=== PATIENT | male | born 1975 | race Caucasian/White ===

== ENCOUNTER 2017-11-30 12:32 | Emergency (ER) | payer MEDICARE, OTHER ==
[~2017-11-30 12:32] MED LIST: ACET325T9 PO; AMIT50TA PO; AMOX1TAB61 PO; BACL20TA PO; CARB15DR2 OP; CEPH-264 PEG; DOCU-109 PO; FENT1PAT91 TD; FEXO60TA25 PO; HYDR-2758 PO; LACT-73 PO; LACT10SO PO; LANS30CA66 PO; LEVE100S8 PO; LINE600T PO; LORA0.5P MC; LORA0.5T PO; LORA2ORA2 PO; MAGN400C PO; MAGN400O7 PO; MOXI3DRO2 OU; MULT-18 PO; OXYB5TAB7 PO; OXYC5CAP PO; PANT40GR PO; POLY17PO5 PO; PROP20TA PO; SERT25TA PO; TIZA6CAP PO; ULTIMATE FLORA; ZINC50TA29 PO; [UNRECOGNIZED DRUG - CODE] IV; [UNRECOGNIZED DRUG - CODE] MC; [UNRECOGNIZED DRUG - CODE] PO; [UNRECOGNIZED DRUG - CODE] PO; [UNRECOGNIZED DRUG - CODE] PO
--- NOTE | 2017-11-30 13:24 | PHYS DOC ---
Past History Past Medical History: Gallstones, Kidney Stones, UTI, Other Past Surgical History: Other Smoking: Non-smoker Alcohol Use: None Drug Use: None Adult General Chief Complaint Chief Complaint: UPPER EXTREMITY SWELLING [facility] HPI 42-year-old male presents with right upper extremity bruising and swelling. 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 I'm days ago, the family noticed some bruising on the upper posterior portion of the right arm in the lateral portion of the right shoulder. They're unsure how this occurred. It is possible that it occurred from physical therapy or bed transfers. The superficial bruising has been improving over the last few days, but there is some additional swelling down to the elbow. The patient's mother is concerned about a thrombus. The patient has not had fever or chills. 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 This was just changed days ago. Review of Systems Review of Systems Constitutional: Denies fever or chills [] Eyes: Denies redness, or eye pain [] HENT: Denies nasal congestion or sore throat [] Respiratory: Denies cough or shortness of breath [] Cardiovascular: No additional information not addressed in HPI [] GI: Denies abdominal pain, nausea, vomiting, bloody stools or diarrhea [] : Denies dysuria or hematuria [] Musculoskeletal: Denies back pain or joint pain [] Integument: Bruising of right upper extremity[] Neurologic: Denies headache, new focal weakness or sensory changes [] Endocrine: [] All other systems were reviewed and found to be within normal limits, except as documented in this note. Allergies Allergies Allergies Coded Allergies Type Severity Reaction Last Updated Verified Sulfa (Sulfonamide Antibiotics) Allergy Intermediate 02/06/15 Yes vancomycin Allergy Intermediate 02/06/15 Yes Uncoded Allergies Type Severity Reaction Last Updated Verified AQUACEL FOAM DRESSING Allergy Intermediate 05/26/14 Physical Exam Physical Exam Constitutional: Well developed, well nourished, no acute distress, non-toxic appearance. [] HENT: Normocephalic, atraumatic, bilateral external ears normal, oropharynx moist, no oral exudates, nose normal. [] Eyes: PERRLA, EOMI, conjunctiva normal, no discharge. [] Neck: No tenderness, supple, no stridor. [] Cardiovascular:Heart rate regular rhythm, no murmur [] Lungs & Thorax: Bilateral breath sounds clear to auscultation [] Abdomen: Bowel sounds normal, soft, no tenderness, no masses, no pulsatile masses. [] Skin: Warm, dry, no erythema, no rash. Bruising to posterior right arm, and shoulder. Mild edema just below the right elbow.[] Back: No tenderness, no CVA tenderness. [] Extremities: Bilteral contractions of upper and lower extremities consistent with severe TBI. [] Neurologic: Alert, no focal deficits noted. [] Psychologic: Mood normal. [] Current Patient Data Vital Signs Vital Signs Date Time Temp Pulse Resp B/P (MAP) Pulse Ox O2 Delivery O2 Flow Rate FiO2 11/30/17 12:32 98.6 85 16 95 Room Air EKG EKG [] Radiology/Procedures Radiology/Procedures [] Course & Med Decision Making Course & Med Decision Making Pertinent Labs and Imaging studies reviewed. (See chart for details) The patient's ultrasound was negative for thrombus. There is some fluid around the elbow, but no drainable pocket. It is most likely that the patient's bruising came from a bed transfer or overwork during physical therapy. It is not appear to be consistent with abuse or neglect. Overall, patient seems well cared for. [] Dragon Disclaimer Dragon Disclaimer This electronic medical record was generated, in whole or in part, using a voice recognition dictation system. Departure Departure: Referrals: YANELI TREJO MD (PCP) ISAAC WAHL DO November 30, 2017 13:24
--- NOTE | 2017-11-30 17:17 | RAD ---
EXAM: Right upper extremity venous Doppler. HISTORY: Right upper extremity pain/swelling. COMPARISON: None. FINDINGS: Grayscale and Doppler analysis of the right upper extremity deep venous system was performed with graded compression and augmentation. The internal jugular, subclavian, axillary, brachial, basilic, cephalic, radial and ulnar veins were assessed. There is no evidence of deep venous thrombosis. At the site of concern on the posterior forearm, there is subcutaneous edema without a drainable collection. IMPRESSION: 1. Subcutaneous edema without a drainable collection at the site of concern. No evidence of deep venous thrombosis. Electronically signed by: Penelope Negrete MD (11/30/2017 5:14 PM) [facility]
[2017-11-30 18:08] VITALS: BP 130/86
== END 2017-11-30 18:34 | disposition home or self-care (01) ==
LOC: ER 12:32
DX: S50.01XA Contusion of right elbow, initial encounter (principal); Z87.442 Personal history of urinary calculi; Z87.820 Personal history of traumatic brain injury; Z88.2 Allergy status to sulfonamides; Z88.1 Allergy status to other antibiotic agents; X58.XXXA Exposure to other specified factors, initial encounter; Y93.89 Activity, other specified; Y99.8 Other external cause status; Y92.89 Other specified places as the place of occurrence of the external cause
CPT/HCPCS: 93971; 99284-25

== ENCOUNTER 2017-12-17 10:52 | Emergency (ER) | payer MEDICARE, OTHER ==
[~2017-12-17] VITALS: Ht 195.6 cm; Wt 93.0 kg
[2017-12-17 10:52] VITALS: BP 107/70
--- NOTE | 2017-12-17 12:55 | PHYS DOC ---
Past History Past Medical History: Other Past Surgical History: Other Smoking: Non-smoker Alcohol Use: None Drug Use: None Adult General Chief Complaint Chief Complaint: GTUBE REPLACEMENT/MALFUNCTION HPI HPI 42-year-old male with a history of severe TBI presents via EMS for feeding tube displacement. The patient actually brushed past his PEG tube and pulled it out. The [employer] that the family uses recommended that the family use their new spare tube and reinserted in the hole. The family did not feel comfortable doing this and they called EMS. On arrival the patient was alert and calm. His feeding tube was in fact missing, but the site was not bleeding. EMS reported no complications in route. Review of Systems Review of Systems unable to perform due to patient being non-verbal and no family present: . Allergies Allergies Allergies Coded Allergies Type Severity Reaction Last Updated Verified Sulfa (Sulfonamide Antibiotics) Allergy Intermediate 02/06/15 Yes vancomycin Allergy Intermediate 02/06/15 Yes Uncoded Allergies Type Severity Reaction Last Updated Verified AQUACEL FOAM DRESSING Allergy Intermediate 05/26/14 Physical Exam Physical Exam Constitutional: Well developed, well nourished, no acute distress, non-toxic appearance. [] HENT: Normocephalic, atraumatic, bilateral external ears normal, oropharynx moist, no oral exudates, nose normal. [] Eyes: PERRLA, EOMI, conjunctiva normal, no discharge. [] Neck: Normal range of motion, no tenderness, supple, no stridor. [] Cardiovascular:Heart rate regular rhythm, no murmur [] Lungs & Thorax: Bilateral breath sounds clear to auscultation [] Abdomen: Bowel sounds normal, soft, no tenderness, no masses, no pulsatile masses. Patient had a well established PEG tube site, no signs of infection, no discharge [] Skin: Warm, dry, no erythema, no rash. [] Back: No tenderness, no CVA tenderness. [] Extremities: No tenderness, no cyanosis, no clubbing, ROM intact, no edema. [] Neurologic: Alert and oriented X 3, normal motor function, normal sensory function, no focal deficits noted. [] Psychologic: Affect normal, judgement normal, mood normal. [] Current Patient Data Vital Signs Vital Signs Date Time Temp Pulse Resp B/P (MAP) Pulse Ox O2 Delivery O2 Flow Rate FiO2 12/17/17 10:52 97.0 65 16 99 Room Air EKG EKG [] Radiology/Procedures Radiology/Procedures [] Course & Med Decision Making Course & Med Decision Making Pertinent Labs and Imaging studies reviewed. (See chart for details) EMS brought the new feeding tube with them. I was able to insert the new tube for the patient without difficulty. I inflated the balloon with 4 mL of saline and dressed the wound with gauze. There were no complications. The patient tolerated the procedure well. He'll return to his home via EMS. [] Dragon Disclaimer Dragon Disclaimer This electronic medical record was generated, in whole or in part, using a voice recognition dictation system. Departure Departure: Impression: Primary Impression: Attention to G-tube Disposition: 01 HOME, SELF-CARE Condition: IMPROVED Patient Instructions: Gastric Tube Replacement ISAAC WAHL DO December 17, 2017 12:54
== END 2017-12-17 11:04 | disposition home or self-care (01) ==
LOC: ER 10:52
DX: Z43.1 Encounter for attention to gastrostomy (principal); Z88.2 Allergy status to sulfonamides; Z88.1 Allergy status to other antibiotic agents
CPT/HCPCS: 43760; 99284-25

== ENCOUNTER 2018-02-08 23:14 | Emergency (ER) | payer MEDICARE, OTHER ==
[~2018-02-08] VITALS: Ht 195.6 cm; Wt 91.2 kg
[2018-02-08 23:15] VITALS: BP 107/70
--- NOTE | 2018-02-09 00:33 | RAD ---
AP chest. HISTORY: Fever, history of traumatic brain injury AP view was taken of the chest. There is a granuloma at the right costophrenic angle and a calcified granuloma at the right hilum. Patient has not taken a deep inspiration. There are no confluent areas of infiltrate. Heart is normal in size. There is no effusion. IMPRESSION: 1. No acute infiltrates. Electronically signed by: Thiago Soriano MD (02/09/2018 12:30 AM) [facility]
--- NOTE | 2018-02-09 00:41 | RAD ---
Supine abdomen. HISTORY: Abdominal pain and distention, fever, history of baclofen pump and feeding tube Supine views were taken of the abdomen. There is mild distention of the bowel which is nonspecific possibly a mild ileus. There is not a definite bowel obstruction. There is a dislocation of the left hip which is chronic.. IMPRESSION: 1. Mild bowel distention possible ileus. 2. No bowel obstruction noted. 3. Chronic left hip dislocation. Electronically signed by: Thiago Soriano MD (02/09/2018 12:38 AM) [facility]
[2018-02-09 01:12] LABS: ALBUMIN 3.4 g/dL (3.4-5.0); ALBUMIN/GLOBULIN RATIO 0.8 (1.0-1.7); CALCIUM 9.1 mg/dL (8.5-10.1); CREATININE 0.7 mg/dL (0.7-1.3); GFR 124.9; POTASSIUM 3.8 mmol/L (3.5-5.1); TOTAL BILIRUBIN 2.3 mg/dL (0.2-1.0); TOTAL PROTEIN 7.5 g/dL (6.4-8.2)
--- NOTE | 2018-02-09 01:19 | PHYS DOC ---
Past History Past Medical History: Other Past Surgical History: Other Smoking: Non-smoker Alcohol Use: None Drug Use: None Adult General Chief Complaint Chief Complaint: ABDOMINAL PAIN [facility] HPI 42-year-old male with TBI presents via EMS for fever and abdominal bloating. He is accompanied by his mother who provides the entire history. The patient has had difficulty getting his tube feedings today due to back pressure. His mother believes that he has had a lot of gas in his stomach. He has also been moaning in acting as though he is in pain more today than normal. This is different than yesterday. He has had a measured fever up to 101. The patient was treated for UTI beginning of the month but finishes antibiotics 14 days ago. He has a chronic indwelling catheter. The patient's mother wants to make sure that he is not developing pneumonia or has more serious condition as abdomen. He has not been vomiting. No diarrhea, but loose stools. Review of Systems Review of Systems Constitutional: Denies fever or chills [] Eyes: Denies redness, or eye pain [] HENT: Denies nasal congestion or sore throat [] Respiratory: Denies cough or shortness of breath [] Cardiovascular: No additional information not addressed in HPI [] GI: Suspected abdominal pain. No vomiting, bloody stools or diarrhea [] : chronic duron [] Musculoskeletal: Denies back pain or joint pain [] Integument: Denies rash or skin lesions [] Neurologic: Denies headache, focal weakness or sensory changes [] Endocrine: [] All other systems were reviewed and found to be within normal limits, except as documented in this note. Allergies Allergies Allergies Coded Allergies Type Severity Reaction Last Updated Verified Sulfa (Sulfonamide Antibiotics) Allergy Intermediate 02/06/15 Yes vancomycin Allergy Intermediate 02/06/15 Yes Uncoded Allergies Type Severity Reaction Last Updated Verified AQUACEL FOAM DRESSING Allergy Intermediate 05/26/14 Physical Exam Physical Exam Constitutional: Well developed, well nourished, no acute distress, non-toxic appearance. [] HENT: Normocephalic, atraumatic, bilateral external ears normal, oropharynx moist, no oral exudates, nose normal. [] Eyes: PERRLA, EOMI, conjunctiva normal, no discharge. [] Neck: Normal range of motion, no tenderness, supple, no stridor. [] Cardiovascular:Heart rate regular rhythm, no murmur [] Lungs & Thorax: Bilateral breath sounds clear to auscultation [] Abdomen: Bowel sounds normal, soft, no tenderness, no masses, no pulsatile masses. [] Skin: Warm, dry, no erythema, no rash. [] Back: No tenderness, no CVA tenderness. [] Extremities: No tenderness, no cyanosis, multiple contractures of bilateral arms and legs[] Neurologic: No change in motor function, sensory function, no focal deficits noted. [] Psychologic: Affect normal, mood normal. [] EKG EKG [] Radiology/Procedures Radiology/Procedures [] Impressions: AP chest. HISTORY: Fever, history of traumatic brain injury AP view was taken of the chest. There is a granuloma at the right costophrenic angle and a calcified granuloma at the right hilum. Patient has not taken a deep inspiration. There are no confluent areas of infiltrate. Heart is normal in size. There is no effusion. IMPRESSION: 1. No acute infiltrates. Electronically signed by: Thiago Soriano MD (02/09/2018 12:30 AM) [place] [id number] Supine abdomen. HISTORY: Abdominal pain and distention, fever, history of baclofen pump and feeding tube Supine views were taken of the abdomen. There is mild distention of the bowel which is nonspecific possibly a mild ileus. There is not a definite bowel obstruction. There is a dislocation of the left hip which is chronic.. IMPRESSION: 1. Mild bowel distention possible ileus. 2. No bowel obstruction noted. 3. Chronic left hip dislocation. Electronically signed by: Thiago Soriano MD (02/09/2018 12:38 AM) [place] [id number] Course & Med Decision Making Course & Med Decision Making Pertinent Labs and Imaging studies reviewed. (See chart for details) The patient's chest x-ray is negative for acute findings. His KUB shows some distention but no signs of obstruction. Mild ileus suspected. Hip dislocation is chronic. Labs are pending. The patient's labs are unremarkable. His urinalysis is strongly positive for white blood cells, leukocyte esterase, nitrate, and bacteria. Given his fever and these results, I am inclined to treat before the culture results come back. I will give him 2 g Rocephin and his mother will follow up with his primary physician to review the culture results on Jarod. To help with his ileus, we will drain his feeding tube to gravity and give him a glycerin suppository. [] Dragon Disclaimer Dragon Disclaimer This electronic medical record was generated, in whole or in part, using a voice recognition dictation system. Departure Departure: Referrals: MICKI TREJO (PCP) ISAAC WAHL DO Feb 09, 2018 01:19
[2018-02-09] MEDS ORDERED: ranitidine (01:34)
[2018-02-09] MEDS ORDERED: vit D (01:34)
[2018-02-09] MEDS ORDERED: cranberry (01:34)
[2018-02-09 01:35] LABS: BASO % 1 % (0-3); EOS # 0.2 x10^3/uL (0.0-0.7); EOS % 4 % (0-3); HEMATOCRIT 46.8 % (39.0-53.0); HEMOGLOBIN 16.2 g/dL (13.0-17.5); LYMPH # 0.9 x10^3/uL (1.0-4.8); LYMPH % 18 % (24-48); MEAN CORPUSCULAR HEMOGLOBIN 31 pg (25-35); MEAN CORPUSCULAR HGB CONC 35 g/dL (31-37); MEAN CORPUSCULAR VOLUME 90 fL (79-100); MONO # 0.5 x10^3/uL (0.0-1.1); MONO % 10 % (0-9); NEUT # 3.4 x10^3uL (1.8-7.7); NEUT % 67 % (31-73); PLATELET COUNT 116 x10^3/uL (140-400); RED BLOOD COUNT 5.21 x10^6/uL (4.30-5.70); RED CELL DISTRIBUTION WIDTH 13.3 % (11.5-14.5); WHITE BLOOD COUNT 5.1 x10^3/uL (4.0-11.0)
[2018-02-09 01:35] LABS: BILIRUBIN,URINE SMALL (NEG); CLARITY,URINE CLOUDY; COLOR,URINE AMBER; GLUCOSE,URINE NEG (NEG); NITRITE,URINE POS (NEG); UROBILINOGEN,URINE 1 mg/dL (0.2 mg/dL)
[2018-02-09 01:36] LABS: AMORPHOUS SEDIMENT,UR PRESENT /HPF; BACTERIA,URINE MANY /HPF (0-FEW); RBC,URINE >40 /HPF (0-2); SQUAMOUS EPITHELIAL CELL,UR OCC /LPF; WBC,URINE TNTC /HPF (0-4)
[2018-02-09] MEDS ORDERED: baclofen pump (01:38)
[2018-02-09] MEDS ORDERED: [UNRECOGNIZED DRUG - OTHER] GT (01:38)
[2018-02-09] MEDS ORDERED: GLYCERIN ADULT 1 SUPP.RECT. ONE (02:33)
[2018-02-09] MEDS ORDERED: GLYCERIN ADULT 1 SUPP.RECT. PR ONE (03:15)
== END 2018-02-09 03:11 | disposition home or self-care (01) ==
LOC: ER 23:14
DX: R50.9 Fever, unspecified (principal); R14.0 Abdominal distension (gaseous); Z88.2 Allergy status to sulfonamides; Z88.1 Allergy status to other antibiotic agents
CPT/HCPCS: 36415; 71045; 74018; 80053; 81001; 85025; 87040; 87070; 87086; 87880; 96374; 99285; J0696

== ENCOUNTER 2018-06-04 13:02 | Emergency (ER) | payer MEDICARE, OTHER ==
[~2018-06-04] VITALS: Ht 195.6 cm; Wt 91.2 kg
[~2018-06-04 13:02] MED LIST changes: -ZINC50TA29 PO; +ZINC50TA39 PO; +[UNRECOGNIZED DRUG - OTHER] GT; +baclofen pump; +cranberry; +ranitidine; +vit D
[2018-06-04 13:22] VITALS: BP 103/67
--- NOTE | 2018-06-04 13:25 | PHYS DOC ---
Past History Past Medical History: Constipation, GERD, Hip Dislocation, Kidney Infection, UTI, Other Additional Past Medical Histor: TBI Past Surgical History: Other Smoking: Non-smoker Alcohol Use: Sober Drug Use: None Adult General Chief Complaint Chief Complaint: GTUBE REPLACEMENT/MALFUNCTION HPI HPI Patient is a 42 year old nonvariable male with severe TBI and PEG tube in place brought in by EMS because of PEG tube came out about 3 hours ago and home health nurse was able to insert it. Patient was not able to give any history and history was taking from patient's mother and EMS. Review of Systems Review of Systems Unable to obtain , nonverbal Allergies Allergies Allergies Coded Allergies Type Severity Reaction Last Updated Verified Sulfa (Sulfonamide Antibiotics) Allergy Intermediate 02/06/15 Yes vancomycin Allergy Intermediate 02/06/15 Yes Uncoded Allergies Type Severity Reaction Last Updated Verified AQUACEL FOAM DRESSING Allergy Intermediate 05/26/14 Physical Exam Physical Exam Constitutional: Nonverbal, no acute distress, non-toxic appearance. [] HENT: Normocephalic, atraumatic. Eyes: PERRLA, EOMI, conjunctiva normal, no discharge. [] Neck: Normal range of motion, no tenderness, supple, no stridor. [] Cardiovascular:Heart rate regular rhythm, no murmur [] Lungs & Thorax: Bilateral breath sounds clear to auscultation [] Abdomen: Bowel sounds normal, soft, PEG tube out of the place] Skin: Warm, dry, no erythema, no rash. [] Extremities: Upper and lower extremity partially paralyzed and gopal position Neurologic: Awake, Psychologic: Unable to evaluate EKG EKG [] Radiology/Procedures Radiology/Procedures [] Course & Med Decision Making Course & Med Decision Making Evaluation of patient in ER showed 42-year-old male patient with severe TBI brought in for insertion of PEG tube. PEG tube was placed with good flow. Patient discharged by EMS to his home Dragon Disclaimer Dragon Disclaimer This electronic medical record was generated, in whole or in part, using a voice recognition dictation system. Gastrostomy Tube Replacement Indication: PEG tube replacement Procedure: The patient was placed in the supine position and after dilatation of orifice of previous PEG tube with intubation stylet and caudate catheter the patient's gastric tube was placed. The placement verified with good fluid flow The patient tolerated the procedure well Complications: none. Departure Departure: Impression: Primary Impression: Status post insertion of percutaneous endoscopic gastrostomy (PEG) tube Additional Impressions: PEG tube malfunction Traumatic brain injury Disposition: HOME, SELF-CARE (at 1324) Condition: IMPROVED Referrals: YANELI TREJO MD (PCP) Patient Instructions: Care of a Feeding Tube Site, Tube Feeding Considerations Additional Instructions: Follow-up with your primary care physician in 3-5 days Return to ER if not getting better Problem Qualifiers EMBER FISHER MD Jun 04, 2018 13:25
== END 2018-06-04 13:45 | disposition home or self-care (01) ==
LOC: ER 13:02
DX: K94.23 Gastrostomy malfunction (principal); Z87.820 Personal history of traumatic brain injury; K21.9 Gastro-esophageal reflux disease without esophagitis; Z87.440 Personal history of urinary (tract) infections; Z88.2 Allergy status to sulfonamides; Z88.1 Allergy status to other antibiotic agents
CPT/HCPCS: 43760; 99284

== ENCOUNTER 2018-06-12 16:27 | Inpatient (IN) | payer MEDICARE, OTHER ==
[~2018-06-12] VITALS: Ht 195.6 cm; Wt 82.6 kg
[~2018-06-12 16:27] MED LIST changes: +HYDR-2155 PO; -HYDR-2758 PO
[2018-06-12] MEDS ORDERED: IV NORMAL SALINE 1,000ML 1,000 ML IV SCH (16:34)
--- NOTE | 2018-06-12 17:01 | RAD ---
EXAM: Chest, single view. HISTORY: Mental status changes. COMPARISON: 02/08/2018 FINDINGS: A frontal view of the chest is obtained. There is no infiltrate, pleural effusion or pneumothorax. The heart is normal in size. There are several calcified granulomas. There is a small nodular opacity overlying the left lower thorax which is not clearly calcified and may be a nipple shadow. IMPRESSION: 1. No acute pulmonary finding. 2. Small nodular opacity overlying the left lower thorax, possibly a nipple shadow or noncalcified nodule. Short-term follow-up following placement of nipple markers can be performed for characterization. Electronically signed by: Tory Loya MD (06/12/2018 4:58 PM) [facility]
[2018-06-12 17:02] LABS: BASO % 1 % (0-3); EOS # 0.1 x10^3/uL (0.0-0.7); EOS % 2 % (0-3); HEMATOCRIT 50.5 % (39.0-53.0); LYMPH # 1.2 x10^3/uL (1.0-4.8); LYMPH % 23 % (24-48); MEAN CORPUSCULAR HEMOGLOBIN 31 pg (25-35); MEAN CORPUSCULAR HGB CONC 34 g/dL (31-37); MEAN CORPUSCULAR VOLUME 91 fL (79-100); MONO # 0.4 x10^3/uL (0.0-1.1); MONO % 7 % (0-9); NEUT # 3.4 x10^3uL (1.8-7.7); NEUT % 67 % (31-73); PLATELET COUNT 147 x10^3/uL (140-400); RED BLOOD COUNT 5.56 x10^6/uL (4.30-5.70); RED CELL DISTRIBUTION WIDTH 12.9 % (11.5-14.5); WHITE BLOOD COUNT 5.1 x10^3/uL (4.0-11.0)
[2018-06-12 17:23] LABS: CLARITY,URINE CLOUDY; COLOR,URINE YELLOW; GLUCOSE,URINE NEG (NEG)
[2018-06-12 17:24] LABS: BACTERIA,URINE MANY /HPF (0-FEW); BILIRUBIN,URINE NEG (NEG); NITRITE,URINE POS (NEG); RBC,URINE >40 /HPF (0-2); UROBILINOGEN,URINE 0.2 mg/dL (0.2 mg/dL); WBC,URINE >40 /HPF (0-4)
--- NOTE | 2018-06-12 17:25 | PHYS DOC ---
Past History Past Medical History: Constipation, GERD, Hip Dislocation, Kidney Infection, UTI, Other Additional Past Medical Histor: TBI Past Surgical History: Other Smoking: Non-smoker Alcohol Use: Sober Drug Use: None Adult General Chief Complaint Chief Complaint: DIARRHEA HPI HPI Patient is a 42-year-old male with history of traumatic brain injury who is brought in by EMS with report of mild change in mental status. Patient has also been noted to have loose stools over the last few days. Family is also noted that patient's tube feeds have been progressively getting more diminished. There is no definite history of fever. Additional history is limited at this time due to patient's mental status associated with TBI and no family present at this time. Review of Systems Review of Systems Constitutional: Denies fever [] GI: Positive diarrhea [] Neurologic: Positive mental status changes [] Unable to fully assess review of systems due to status associated with TBI. Current Medications Current Medications Current Medications Medications (Trade) Dose Ordered Sig/Ike Start Time Stop Time Status Last Admin Dose Admin Sodium Chloride 1,000 ml @ 1,000 mls/hr Q1H 06/12/18 16:34 06/12/18 17:33 Allergies Allergies Allergies Coded Allergies Type Severity Reaction Last Updated Verified Sulfa (Sulfonamide Antibiotics) Allergy Intermediate 02/06/15 Yes vancomycin Allergy Intermediate 02/06/15 Yes Uncoded Allergies Type Severity Reaction Last Updated Verified AQUACEL FOAM DRESSING Allergy Intermediate 05/26/14 Physical Exam Physical Exam Constitutional: Awake and alert, no acute distress, non-toxic appearance. [] HENT: Normocephalic, atraumatic, bilateral external ears normal, oropharynx dry , no oral exudates, nose normal. [] Eyes: PERRLA, EOMI, conjunctiva normal, no discharge. [] Neck: Normal range of motion, no tenderness, supple. [] Cardiovascular: Regular rate and rhythm[] Lungs & Thorax: Bilateral breath sounds clear to auscultation [] Abdomen: Bowel sounds normal, soft, no tenderness. [] Skin: Warm, dry. [] Extremities: No tenderness, no cyanosis, no clubbing. [] Neurologic: Awake and alert. [] Current Patient Data Lab Results Laboratory Tests Test 06/12/18 16:44 White Blood Count 5.1 x10^3/uL (4.0-11.0) Red Blood Count 5.56 x10^6/uL (4.30-5.70) Hemoglobin 17.0 g/dL (13.0-17.5) Hematocrit 50.5 % (39.0-53.0) Mean Corpuscular Volume 91 fL (79-100) Mean Corpuscular Hemoglobin 31 pg (25-35) Mean Corpuscular Hemoglobin Concent 34 g/dL (31-37) Red Cell Distribution Width 12.9 % (11.5-14.5) Platelet Count 147 x10^3/uL (140-400) Neutrophils (%) (Auto) 67 % (31-73) Lymphocytes (%) (Auto) 23 % (24-48) L Monocytes (%) (Auto) 7 % (0-9) Eosinophils (%) (Auto) 2 % (0-3) Basophils (%) (Auto) 1 % (0-3) Neutrophils # (Auto) 3.4 x10^3uL (1.8-7.7) Lymphocytes # (Auto) 1.2 x10^3/uL (1.0-4.8) Monocytes # (Auto) 0.4 x10^3/uL (0.0-1.1) Eosinophils # (Auto) 0.1 x10^3/uL (0.0-0.7) Basophils # (Auto) 0.0 x10^3/uL (0.0-0.2) EKG EKG [] Radiology/Procedures Radiology/Procedures [] Course & Med Decision Making Course & Med Decision Making Pertinent Labs and Imaging studies reviewed. (See chart for details) [] Dragon Disclaimer Dragon Disclaimer This electronic medical record was generated, in whole or in part, using a voice recognition dictation system. Departure Departure: Impression: Primary Impression: UTI (urinary tract infection) Additional Impressions: Altered mental status Abdominal pain Disposition: ADMITTED INPATIENT Admitting Physician: Letty Jones Condition: IMPROVED Referrals: YANELI TREJO MD (PCP) Problem Qualifiers Primary Impression: UTI (urinary tract infection) Urinary tract infection type: site unspecified Hematuria presence: without hematuria Qualified Codes: N39.0 - Urinary tract infection, site not specified Additional Impressions: Altered mental status Altered mental status type: unspecified Qualified Codes: R41.82 - Altered mental status, unspecified Abdominal pain Abdominal location: unspecified location Qualified Codes: R10.9 - Unspecified abdominal pain DAYSI VOGT Jr. DO Jun 12, 2018 17:25
[2018-06-12 17:37] LABS: ALBUMIN 3.2 g/dL (3.4-5.0); ALBUMIN/GLOBULIN RATIO 0.8 (1.0-1.7); CALCIUM 8.6 mg/dL (8.5-10.1); CREATININE 0.7 mg/dL (0.7-1.3); GFR 124.9; MAGNESIUM 1.9 mg/dL (1.8-2.4); POTASSIUM 3.5 mmol/L (3.5-5.1); TOTAL BILIRUBIN 1.6 mg/dL (0.2-1.0); TOTAL PROTEIN 7.1 g/dL (6.4-8.2)
[2018-06-12] MEDS ORDERED: cefTRIAXone SODIUM 1 GM VIAL IV ONE (18:02)
[2018-06-12] MEDS ORDERED: IV NORMAL SALINE 50ML 50 ML ONE (18:02)
[2018-06-12 18:25] LABS: INFLUENZA A PATIENT NEGATIVE (NEGATIVE); INFLUENZA B PATIENT NEGATIVE (NEGATIVE)
[2018-06-12] MEDS ORDERED: CONTRAST GIVEN MC PRN (18:45)
[2018-06-12] MEDS ORDERED: IOHEXOL 300 MG/ML 75 ML VIAL. IV ONE (19:00)
[2018-06-12] MEDS ORDERED: ONDANSETRON PF 4 MG/2 ML VIAL. IV PRN (19:00)
--- NOTE | 2018-06-12 19:36 | RAD ---
Exam performed: CT scan of the abdomen and pelvis with contrast Clinical Indication: Abdominal pain, diarrhea, traumatic brain injury Date of Service: 06/12/2018 comparison: CT abdomen and pelvis from 02/06/2015 Technique: Contiguous helical acquisitions are obtained from the lung bases to the pelvis during intravenous administration of [75 mL of Isovue-320]. In addition oral contrast was also given. Sagittal and coronal reformatted images were obtained and reviewed. CT abdomen findings: The lung bases appear essentially clear. Visualized heart is normal The liver, spleen and pancreas appears unremarkable. Cholelithiasis Both adrenal glands and bilateral kidneys appear normal with symmetric excretion of contrast via both kidneys. The small bowel loops appear nondilated and unremarkable. There is a PEG tube in the stomach. Aorta is normal in caliber. There is no retroperitoneal lymphadenopathy or mass lesions. No bowel related inflammatory stranding is noted. No obvious stranding is seen in the pericecal region. CT pelvis findings: The pelvic bowel loops are nondilated and unremarkable. The urinary bladder is decompressed secondary to a suprapubic catheter. Stool and gas throughout the colon predominantly in the rectosigmoid region Interrogation of bone windows demonstrates no obvious bony abnormality. Sagittal and coronal reformatted images were obtained and reviewed which demonstrate no additional findings. Impression abdomen and pelvis : 1. No acute intra-abdominal or pelvic process is detected. Chronic changes as outlined above. PQRS Compliance Statement: One or more of the following individualized dose reduction techniques were utilized for this examination: 1. Automated exposure control 2. Adjustment of the mA and/or kV according to patient size 3. Use of iterative reconstruction technique Electronically signed by: Tanja Gray MD (06/12/2018 7:33 PM) [facility]
[2018-06-12] MEDS ORDERED: LORazepam 2 MG/ML VIAL IV ONE (21:30)
[2018-06-12] MEDS: IV NORMAL SALINE 1,000ML 1,000 ML IV SCH (23:18)
[2018-06-13 01:42] VITALS: BP 117/68
[2018-06-13] MEDS ORDERED: MELA3TAB2 PO (05:34)
[2018-06-13 06:10] VITALS: BP 118/66
[2018-06-13 07:16] LABS: BASO % 1 % (0-3); EOS # 0.1 x10^3/uL (0.0-0.7); EOS % 3 % (0-3); HEMATOCRIT 44.3 % (39.0-53.0); LYMPH # 0.9 x10^3/uL (1.0-4.8); LYMPH % 18 % (24-48); MEAN CORPUSCULAR HEMOGLOBIN 31 pg (25-35); MEAN CORPUSCULAR HGB CONC 34 g/dL (31-37); MEAN CORPUSCULAR VOLUME 91 fL (79-100); MONO # 0.4 x10^3/uL (0.0-1.1); MONO % 9 % (0-9); NEUT # 3.4 x10^3uL (1.8-7.7); NEUT % 70 % (31-73); PLATELET COUNT 133 x10^3/uL (140-400); RED BLOOD COUNT 4.88 x10^6/uL (4.30-5.70); RED CELL DISTRIBUTION WIDTH 12.8 % (11.5-14.5); WHITE BLOOD COUNT 4.9 x10^3/uL (4.0-11.0)
[2018-06-13 07:22] LABS: CALCIUM 8.3 mg/dL (8.5-10.1); CREATININE 0.8 mg/dL (0.7-1.3); GFR 107.1; POTASSIUM 3.1 mmol/L (3.5-5.1)
[2018-06-13] MEDS: IV NORMAL SALINE 1,000ML 1,000 ML IV SCH ×2 (08:23→20:15)
[2018-06-13] MEDS: CETIRIZINE HCL 10 MG TABLET PO SCH (09:00)
[2018-06-13] MEDS: OXYBUTYNIN CHLORIDE 5 MG TABLET PO SCH ×3 (09:00→20:14)
[2018-06-13 11:51] VITALS: BP 115/74
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
--- NOTE | 2018-06-13 14:43 | RAD ---
EXAM: Abdomen, single view. HISTORY: G-tube placement. COMPARISON: CT dated 06/12/2018. FINDINGS: Frontal views of the abdomen are obtained. There is a catheter overlying the mid abdomen. There is contrast within unremarkable appearing small bowel. There is a nonobstructive bowel gas pattern. There is a generator within the right buttock with catheter extending cephalad to terminate at the mid thoracic level. There is a calcified granuloma within the right lower lobe. IMPRESSION: 1. Small of contrast within the proximal small bowel and catheter overlying the mid abdomen. No extravasation of contrast is seen. 2. Nonobstructive bowel gas pattern. Electronically signed by: Tory Loya MD (06/13/2018 2:40 PM) [facility] [place]
[2018-06-13 16:25] VITALS: BP 104/68
[2018-06-13 19:45] VITALS: BP 116/72
[2018-06-13 23:04] VITALS: BP 123/77
[2018-06-14] MEDS: IV NORMAL SALINE 1,000ML 1,000 ML IV SCH (04:15)
[2018-06-14 05:20] VITALS: BP 110/72
[2018-06-14 10:54] LABS: CALCIUM 8.1 mg/dL (8.5-10.1); CREATININE 0.7 mg/dL (0.7-1.3); GFR 124.9; POTASSIUM 3.7 mmol/L (3.5-5.1)
[2018-06-14 11:40] VITALS: BP 102/67
[2018-06-14] MEDS: CETIRIZINE HCL 10 MG TABLET PO SCH (13:11)
[2018-06-14] MEDS: OXYBUTYNIN CHLORIDE 5 MG TABLET PO SCH ×3 (13:11→21:22)
[2018-06-14] MEDS: POTASSIUM CHLORIDE 20 MEQ/15 ML ORAL LIQUID. PO SCH ×2 (14:32→21:21)
[2018-06-14 15:23] VITALS: BP 148/74
[2018-06-14 19:00] VITALS: BP 129/73
--- NOTE | 2018-06-15 06:27 | PN ---
DATE: 06/14/2018 SUBJECTIVE: The patient was admitted yesterday with malfunctioning gastrostomy tube. He also was found to have urinary tract infection. We started him on IV fluids and I did manipulate his gastrostomy tube and pulled it back slightly. We confirmed its position by Omnipaque injection and we did start him on his tube feeds yesterday without any difficulty. OBJECTIVE: GENERAL: When I saw him today, he looked well and was clearly in no apparent respiratory distress. He was encephalopathic, nonverbal, pale. No jaundice, cyanosis or thyromegaly. No jugular venous distention. No lower limb edema. VITAL SIGNS: His heart rate was 94, blood pressure was 110/72, temperature was 98.6, respiratory rate was 20 and oxygen saturation was 98% on room air. HEENT: Examination of the head, eyes, ears, nose and throat showed normocephalic, atraumatic. NECK: Supple. HEART: Showed normal first and second heart sounds. No gallop, rub or murmur. CHEST: Clear to auscultation. No crepitation or rhonchi. ABDOMEN: Distended, soft and nontender. No guarding or rigidity. No organomegaly. All hernial orifices intact. Bowel sounds normal. NEUROLOGIC: He is encephalopathic, nonverbal, has quadriplegia with fixed flexion contraction of all 4 limbs. He is mostly bedbound. His intake was 1015; output was recorded. LABORATORY DATA: His lab work this morning showed his white cell count 4900, hemoglobin 15, hematocrit 44, MCV 91 and platelet count of 133,000 with normal differential. His chemistry showed a serum sodium 142, potassium 3.1, chloride 105, bicarbonate 29, anion gap of 8, BUN 17, creatinine 0.8, estimated GFR was 107, his glucose was 96 and calcium was 8.3. ASSESSMENT AND PLAN: Malfunctioning gastrostomy tube, resolved. Urinary tract infection, for which he is on IV Rocephin 1 gram IV daily. Other medical problems include traumatic brain injury with vegetative state; quadriplegia with fixed flexion contraction of all 4 limbs; dysphagia, for which he has a gastrostomy tube in place; neurogenic bladder, requiring suprapubic catheter and hypokalemia, for which we will start him on potassium supplement. LLOYD DUBOIS MD DR: Esdras JOB#: [id number] / [id number]
[2018-06-15 06:51] VITALS: BP 115/77
[2018-06-15] MEDS: OXYBUTYNIN CHLORIDE 5 MG TABLET PO SCH ×3 (09:23→20:44)
[2018-06-15] MEDS: CETIRIZINE HCL 10 MG TABLET PO SCH (09:23)
[2018-06-15] MEDS: POTASSIUM CHLORIDE 20 MEQ/15 ML ORAL LIQUID. PO SCH ×3 (09:24→20:44)
[2018-06-15 11:16] VITALS: BP 104/72
[2018-06-15 15:22] VITALS: BP 98/58
[2018-06-15 20:23] VITALS: BP 106/88
[2018-06-16 05:48] VITALS: BP 127/83
[2018-06-16 06:36] LABS: HEMATOCRIT 42.9 % (39.0-53.0); HEMOGLOBIN 14.9 g/dL (13.0-17.5); RED BLOOD COUNT 4.8 x10^6/uL (4.30-5.70); WHITE BLOOD COUNT 3.7 x10^3/uL (4.0-11.0)
[2018-06-16 06:44] LABS: CALCIUM 8.7 mg/dL (8.5-10.1); CREATININE 0.6 mg/dL (0.7-1.3); GFR 149.2; POTASSIUM 4.1 mmol/L (3.5-5.1)
[2018-06-16] MEDS: OXYBUTYNIN CHLORIDE 5 MG TABLET PO SCH ×2 (08:39→14:44)
[2018-06-16] MEDS: CETIRIZINE HCL 10 MG TABLET PO SCH (08:39)
[2018-06-16] MEDS: POTASSIUM CHLORIDE 20 MEQ/15 ML ORAL LIQUID. PO SCH ×2 (08:40→14:43)
--- NOTE | 2018-06-16 09:47 | PN ---
DATE: 06/15/2018 SUBJECTIVE: The patient is resting, slightly propped up in bed, no apparent distress. He is encephalopathic, nonverbal; however, the nursing staff did not voice any concerns, that he has been tolerating his tube feeding without any problem, has no fever. His vital signs otherwise stable. PHYSICAL EXAMINATION: GENERAL: When I examined him, he looked pale. No jaundice, cyanosis, or thyromegaly. No jugular venous distention. No lower limb edema. VITAL SIGNS: His heart rate was 57, blood pressure 115/77, temperature was 98, respiratory rate was 20 and oxygen saturation was 94%. The rest of clinical examination is unremarkable, has not really changed. His intake was 2071, output was 2275. LABORATORY DATA: As of this morning, his white cell count was 4900, hemoglobin 15, hematocrit 44, MCV 91 and platelet count of 133,000. His chemistry showed a serum sodium 141, potassium 3.7, chloride 107, bicarbonate 28, anion gap of 6, BUN 13, creatinine 0.7. ASSESSMENT: 1. Malfunctioning gastrostomy tube, resolved. 2. Urinary tract infection, for which he is on IV Rocephin. The urine culture and sensitivity still pending at the time of this dictation. 3. Traumatic brain injury with vegetative state. 4. Quadriplegia, with flexion contraction of all 4 limbs. 5. Dysphagia, for which he has percutaneous endoscopic gastrostomy tube. 6. Neurogenic bladder requiring suprapubic catheter. 7. Hypokalemia, for which he is now on potassium supplement. PLAN: p, and once a bed becomes available, the patient can be switched to oral antibiotic and can be discharged back home. LLOYD DUBOIS MD DR: JEANETTE/rajni JOB#: [id number] / [id number]
[2018-06-16] MEDS ORDERED: CEFP100T PO (10:18)
--- NOTE | 2018-06-16 11:06 | DS ---
DATE OF DISCHARGE: 06/16/2018 HOSPITAL COURSE: The patient is a 42-year-old male patient, who was brought because of malfunctioning gastrostomy tube and altered mental status, was found to have urinary tract infection with marked bacteriuria, leukocyturia as well positive nitrites ____ culture and sensitivity. We started him on IV Rocephin. We pulled his gastrostomy tube back and started functioning well. We confirmed this position in place and has been tolerating his tube feeding without difficulty. PHYSICAL EXAMINATION: GENERAL: When I saw him today, he was resting slightly propped up in bed, in no apparent respiratory distress, pale, but no jaundice or cyanosis. No lymphadenopathy, no thyromegaly. No jugular venous distention. No lower limb edema. VITAL SIGNS: Her heart rate was 92, blood pressure was 127/83, temperature was 98.1, respiratory rate was 18, and oxygen saturation was 95%. HEAD, EYES, EARS, NOSE, AND THROAT: Showed normocephalic. NECK: Supple. HEART: Normal first and second heart sounds with no gallop, rub, or murmur. CHEST: Clear to auscultation. No crepitation or rhonchi. ABDOMEN: Scaphoid, soft, with a gastrostomy tube in place and suprapubic catheter in place. NEUROLOGIC: He was encephalopathic in a vegetative state. He does not track or follow command. He has severe quadriplegia with fixed flexion contraction of all 4 limbs. His intake over the last 24 hours was 2070, output was 2276. LABORATORY DATA: As of this morning, his white cell count was 3700, hemoglobin 14.9, hematocrit 42, MCV 89, and platelet count of 135,000. His chemistry showed a serum sodium 139, potassium 4.1, chloride 104, bicarbonate 28, anion gap of 7, BUN 10, creatinine 0.6, estimated GFR was 149 mL per minute. His glucose was 86, calcium was 8.7. Urinalysis was consistent with a urinary tract infection with pH of 7, it was positive for nitrite, moderate amount of leukocyte esterase, more than 40 wbc's and too many bacteria. Unfortunately, the urine culture is still pending at the time of this dictation. However, his blood cultures x 2 were both negative. DISCHARGE MEDICATIONS: He will be discharged home with home health to continue cefpodoxime 200 mg twice a day for 4 more days. He should continue with all his other medications. FINAL DISCHARGE DIAGNOSES: 1. Malfunctioning gastrostomy tube, resolved. 2. Urinary tract infection, treated with IV antibiotic. He will be discharged on oral to finish the course of treatment. 3. Other medical problems include traumatic brain injury with a vegetative state, quadriplegia with fixed flexion contracture of all 4 limbs. 4. Dysphagia, which he has a percutaneous endoscopic gastrostomy tube. 5. Neurogenic bladder requiring suprapubic catheter. 6. Hypokalemia for which he is now on potassium supplement. LLOYD DUBOIS MD DR: JEANETTE/rajni JOB#: [id number] / [id number]
[2018-06-16 13:14] VITALS: BP 101/65
== END 2018-06-16 17:00 | disposition home health service (06) | DRG 393 ==
LOC: ER 16:27 → 1 SOUTH 21:25
PROVIDERS: ADMIT Internal Medicine; ATTEND Internal Medicine
DX: K94.23 Gastrostomy malfunction (principal); G82.50 Quadriplegia, unspecified; G93.40 Encephalopathy, unspecified; N39.0 Urinary tract infection, site not specified; E87.6 Hypokalemia; K21.9 Gastro-esophageal reflux disease without esophagitis; K80.20 Calculus of gallbladder without cholecystitis without obstruction; N31.9 Neuromuscular dysfunction of bladder, unspecified; G89.29 Other chronic pain; R13.10 Dysphagia, unspecified; K59.09 Other constipation; Z87.820 Personal history of traumatic brain injury; Z93.0 Tracheostomy status; Z88.8 Allergy status to other drugs, medicaments and biological substances; Z88.2 Allergy status to sulfonamides
CPT/HCPCS: 36415; 71045; 74018; 74177; 80048; 80053; 81001; 83605; 83735; 85025; 85027; 87040; 87804; 90471; 90756; 96365; 96375; J0696; J2405; P9612; Q9967; 99285-25; J7030; Q2035

== ENCOUNTER 2018-10-05 19:05 | Inpatient (IN) | payer MEDICARE, OTHER ==
[~2018-10-05] VITALS: Ht 195.6 cm; Wt 87.1 kg
[~2018-10-05 19:05] MED LIST changes: +CEFP100T PO; +MELA3TAB2 PO; +MOXI3DRO18 OU; -MOXI3DRO2 OU
--- NOTE | 2018-10-05 19:24 | ED.ADGEN ---
Past History Past Medical History: Constipation, GERD, Hip Dislocation, Kidney Infection, UTI, Other Additional Past Medical Histor: TBI Past Surgical History: Other Smoking: Non-smoker Alcohol Use: None Drug Use: None Adult General Chief Complaint Chief Complaint Fever HPI HPI This is a 42 years old male with history of traumatic brain injury patient is quadriplegic presented emergency department with fever noticed this morning of 104. Were unable to obtain any history of the patient and with limited information from the caregiver. Review of Systems Review of Systems Limited review of systems due to patient's mental status Current Medications Current Medications Current Medications Medications (Trade) Dose Ordered Sig/Ike Start Time Stop Time Status Last Admin Dose Admin Acetaminophen (Tylenol Supp) 650 mg 1X ONCE 10/05/18 19:30 10/05/18 19:31 DC 10/05/18 19:21 650 MG Levofloxacin/ Dextrose 150 ml @ 150 mls/hr 1X ONCE 10/05/18 20:00 10/05/18 20:59 10/05/18 20:02 150 MLS/HR Linezolid 300 ml @ 300 mls/hr 1X STAT 10/05/18 19:52 10/05/18 20:51 10/05/18 20:19 300 MLS/HR Sodium Chloride 1,000 ml @ 1,000 mls/hr 1X ONCE 10/05/18 20:30 10/05/18 21:29 10/05/18 20:20 1,000 MLS/HR Allergies Allergies Allergies Coded Allergies Type Severity Reaction Last Updated Verified Sulfa (Sulfonamide Antibiotics) Allergy Intermediate 02/06/15 Yes vancomycin Allergy Intermediate 02/06/15 Yes Uncoded Allergies Type Severity Reaction Last Updated Verified AQUACEL FOAM DRESSING Allergy Intermediate 05/26/14 Physical Exam Physical Exam Constitutional: Mild distress Cardiovascular:Heart rate regular rhythm, no murmur [] Lungs & Thorax: Bilateral breath sounds clear to auscultation [] Abdomen: Bowel sounds normal, soft, no tenderness, no masses, no pulsatile masses. [] Skin: Warm, dry, no erythema, no rash. [] Extremities: No tenderness, no cyanosis, no clubbing, ROM intact, no edema. [] Current Patient Data Lab Results Laboratory Tests Test 10/05/18 19:30 White Blood Count 2.6 x10^3/uL (4.0-11.0) L Red Blood Count 5.35 x10^6/uL (4.30-5.70) Hemoglobin 16.8 g/dL (13.0-17.5) Hematocrit 49.4 % (39.0-53.0) Mean Corpuscular Volume 92 fL (79-100) Mean Corpuscular Hemoglobin 31 pg (25-35) Mean Corpuscular Hemoglobin Concent 34 g/dL (31-37) Red Cell Distribution Width 13.1 % (11.5-14.5) Platelet Count 86 x10^3/uL (140-400) L Neutrophils (%) (Auto) 89 % (31-73) H Lymphocytes (%) (Auto) 9 % (24-48) L Monocytes (%) (Auto) 1 % (0-9) Eosinophils (%) (Auto) 1 % (0-3) Basophils (%) (Auto) 0 % (0-3) Neutrophils # (Auto) 2.3 x10^3uL (1.8-7.7) Lymphocytes # (Auto) 0.2 x10^3/uL (1.0-4.8) L Monocytes # (Auto) 0.0 x10^3/uL (0.0-1.1) Eosinophils # (Auto) 0.0 x10^3/uL (0.0-0.7) Basophils # (Auto) 0.0 x10^3/uL (0.0-0.2) Urine Collection Type Unknown Urine Color Yellow Urine Clarity Cloudy Urine pH 8.5 Urine Specific [place] 1.015 Urine Protein Neg (NEG-TRACE) Urine Glucose (UA) Neg mg/dL (NEG) Urine Ketones (Stick) Neg mg/dL (NEG) Urine Blood Mod (NEG) Urine Nitrite Pos (NEG) Urine Bilirubin Neg (NEG) Urine Urobilinogen Dipstick 0.2 mg/dL (0.2 mg/dL) Urine Leukocyte Esterase Large (NEG) Urine RBC 11-20 /HPF (0-2) Urine WBC 11-20 /HPF (0-4) Urine Squamous Epithelial Cells Occ /LPF Urine Amorphous Sediment Present /HPF Urine Bacteria Mod /HPF (0-FEW) Sodium Level 140 mmol/L (136-145) Potassium Level 4.0 mmol/L (3.5-5.1) Chloride Level 100 mmol/L (98-107) Carbon Dioxide Level 34 mmol/L (21-32) H Anion Gap 6 (6-14) Blood Urea Nitrogen 16 mg/dL (8-26) Creatinine 0.8 mg/dL (0.7-1.3) Estimated GFR (Cockcroft-Gault) 107.1 Glucose Level 83 mg/dL (70-99) Lactic Acid Level 3.5 mmol/L (0.4-2.0) H Calcium Level 9.1 mg/dL (8.5-10.1) Influenza Type A (Rapid) Negative (NEGATIVE) Influenza Type B (Rapid) Negative (NEGATIVE) EKG EKG [] Radiology/Procedures Radiology/Procedures [] Course & Med Decision Making Course & Med Decision Making Pertinent Labs and Imaging studies reviewed. (See chart for details) [] Final Impression Final Impression [] Problems: (1) Sepsis Qualifiers: Qualified Codes: A41.9 - Sepsis, unspecified organism (2) UTI (urinary tract infection) Qualifiers: (3) Pneumonia Qualifiers: Dragon Disclaimer Dragon Disclaimer This electronic medical record was generated, in whole or in part, using a voice recognition dictation system. ROSSY LUIS MD Oct 05, 2018 19:24
[2018-10-05] MEDS ORDERED: ACETAMINOPHEN 650 MG SUPP.RECT. PR ONE (19:30)
[2018-10-05] MEDS ORDERED: IV NORMAL SALINE 1,000ML 1,000 ML IV SCH (19:30)
[2018-10-05 19:47] LABS: BASO % 0 % (0-3); EOS % 1 % (0-3); HEMATOCRIT 49.4 % (39.0-53.0); HEMOGLOBIN 16.8 g/dL (13.0-17.5); LYMPH # 0.2 x10^3/uL (1.0-4.8); LYMPH % 9 % (24-48); MEAN CORPUSCULAR HEMOGLOBIN 31 pg (25-35); MEAN CORPUSCULAR HGB CONC 34 g/dL (31-37); MEAN CORPUSCULAR VOLUME 92 fL (79-100); MONO % 1 % (0-9); NEUT # 2.3 x10^3uL (1.8-7.7); NEUT % 89 % (31-73); PLATELET COUNT 86 x10^3/uL (140-400); RED BLOOD COUNT 5.35 x10^6/uL (4.30-5.70); RED CELL DISTRIBUTION WIDTH 13.1 % (11.5-14.5); WHITE BLOOD COUNT 2.6 x10^3/uL (4.0-11.0)
[2018-10-05 19:55] LABS: CALCIUM 9.1 mg/dL (8.5-10.1); CREATININE 0.8 mg/dL (0.7-1.3); GFR 107.1
[2018-10-05 19:57] LABS: BACTERIA,URINE MOD /HPF (0-FEW); BILIRUBIN,URINE NEG (NEG); CLARITY,URINE CLOUDY; COLOR,URINE YELLOW; GLUCOSE,URINE NEG (NEG); NITRITE,URINE POS (NEG); UROBILINOGEN,URINE 0.2 mg/dL (0.2 mg/dL)
[2018-10-05 19:58] LABS: AMORPHOUS SEDIMENT,UR PRESENT /HPF; SQUAMOUS EPITHELIAL CELL,UR OCC /LPF
[2018-10-05 20:07] LABS: INFLUENZA A PATIENT NEGATIVE (NEGATIVE); INFLUENZA B PATIENT NEGATIVE (NEGATIVE)
[2018-10-05] MEDS ORDERED: ACETAMINOPHEN 650 MG SUPP.RECT. PR PRN (20:30)
[2018-10-05] MEDS ORDERED: ONDANSETRON PF 4 MG/2 ML VIAL. IV PRN (20:30)
[2018-10-05] MEDS ORDERED: IV NORMAL SALINE 1,000ML 1,000 ML IV ONE ×2 (20:30)
[2018-10-05] MEDS ORDERED: MORPHINE SULFATE 2 MG/ML DISP.SYRIN. IV PRN (20:30)
[2018-10-05] MEDS: IV NORMAL SALINE 1,000ML 1,000 ML IV SCH (21:09)
[2018-10-05 23:20] VITALS: BP 108/70
[2018-10-06] VITALS (23 sets, daily range): BP systolic 82–131; BP diastolic 53–76
[2018-10-06] MEDS: IV NORMAL SALINE 1,000ML 1,000 ML IV SCH ×3 (02:30→14:47)
[2018-10-06 06:50] LABS: BASO % 0 % (0-3); EOS % 0 % (0-3); HEMATOCRIT 41.9 % (39.0-53.0); HEMOGLOBIN 14.3 g/dL (13.0-17.5); LYMPH # 0.7 x10^3/uL (1.0-4.8); LYMPH % 7 % (24-48); MEAN CORPUSCULAR HEMOGLOBIN 31 pg (25-35); MEAN CORPUSCULAR HGB CONC 34 g/dL (31-37); MEAN CORPUSCULAR VOLUME 92 fL (79-100); MONO # 0.8 x10^3/uL (0.0-1.1); MONO % 7 % (0-9); NEUT # 9.2 x10^3uL (1.8-7.7); NEUT % 86 % (31-73); PLATELET COUNT 91 x10^3/uL (140-400); RED BLOOD COUNT 4.57 x10^6/uL (4.30-5.70); RED CELL DISTRIBUTION WIDTH 12.9 % (11.5-14.5); WHITE BLOOD COUNT 10.7 x10^3/uL (4.0-11.0)
[2018-10-06 06:58] LABS: ALBUMIN 2.6 g/dL (3.4-5.0); ALBUMIN/GLOBULIN RATIO 0.8 (1.0-1.7); CALCIUM 8.1 mg/dL (8.5-10.1); CREATININE 0.8 mg/dL (0.7-1.3); GFR 107.1; POTASSIUM 4.1 mmol/L (3.5-5.1); TOTAL BILIRUBIN 2.8 mg/dL (0.2-1.0); TOTAL PROTEIN 5.9 g/dL (6.4-8.2)
[2018-10-06 07:57] LABS: % BANDS 5 % (0-9); % BASOS 1 % (0-3); % LYMPHS 2 % (24-48); % MONOS 4 % (0-10); % SEGS 88 % (35-66)
[2018-10-06 07:58] LABS: PLT ESTIMATE DECREASED (ADEQUATE)
[2018-10-06 07:59] LABS: POLYCHROMASIA SLIGHT; TOXIC GRANULATION PRESENT; TOXIC VACUOLATION PRESENT
--- NOTE | 2018-10-06 08:04 | RAD ---
Indication:Fever. Hx TBI, unable to follow breathing instructions TECHNIQUE:Portable AP chest X-ray COMPARISON:06/12/2018 FINDINGS: Heart is normal in size. Calcified right hilar lymph node is seen. Prominent bilateral bronchial markings. Calcified granuloma in the right lower lung zone. No pneumothorax or pleural effusion. Visualized bony thorax is within normal limits. IMPRESSION: Prominent bilateral bronchovascular markings may be secondary to bronchitis. Electronically signed by: Toby Wild DO (10/06/2018 8:01 AM) [place]
[2018-10-06] MEDS: LACTOBACILLUS RHAMNOSUS GG 1 CAPSULE. PO SCH ×2 (09:22→20:58)
[2018-10-06] MEDS ORDERED: [UNRECOGNIZED DRUG - OTHER] GT SCH (13:00)
[2018-10-06] MEDS: OXYBUTYNIN CHLORIDE 5 MG TABLET PO SCH ×2 (14:47→20:58)
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
[2018-10-06] MEDS: MELATONIN 3 MG TABLET PO SCH (20:58)
[2018-10-06] MEDS: ACETAMINOPHEN 650 MG/20.3 ML SOLUTION. PO PRN (21:22)
[2018-10-07] VITALS (37 sets, daily range): BP systolic 87–144; BP diastolic 53–83
--- NOTE | 2018-10-07 00:40 | EKG ---
[address] [address] Test Date: 2018-10-05 Test Time: 19:16:09 Pat Name: ETTA EATON Department: Room: [facility] 1 Gender: M Epoxy Specialist: YADI : 1975 Requested By: ROSSY LUIS Order Number: [id number] Reading MD: Roger Polanco MD Measurements Intervals [employer] Rate: 128 P: -124 WA: 98 QRS: 90 QRSD: 80 T: 41 QT: 274 QTc: 403 Interpretive Statements SINUS TACHYCARDIA Electronically Signed On 10-09-2018 16:07:54 CDT by Roger Polanco MD
[2018-10-07 08:31] LABS: BASO % 1 % (0-3); EOS # 0.1 x10^3/uL (0.0-0.7); EOS % 2 % (0-3); HEMATOCRIT 41.8 % (39.0-53.0); HEMOGLOBIN 14.2 g/dL (13.0-17.5); LYMPH # 0.6 x10^3/uL (1.0-4.8); LYMPH % 13 % (24-48); MEAN CORPUSCULAR HEMOGLOBIN 31 pg (25-35); MEAN CORPUSCULAR HGB CONC 34 g/dL (31-37); MEAN CORPUSCULAR VOLUME 92 fL (79-100); MONO # 0.4 x10^3/uL (0.0-1.1); MONO % 9 % (0-9); NEUT # 3.6 x10^3uL (1.8-7.7); NEUT % 76 % (31-73); PLATELET COUNT 78 x10^3/uL (140-400); RED BLOOD COUNT 4.54 x10^6/uL (4.30-5.70); WHITE BLOOD COUNT 4.7 x10^3/uL (4.0-11.0)
[2018-10-07 08:39] LABS: CALCIUM 8.5 mg/dL (8.5-10.1); CREATININE 0.7 mg/dL (0.7-1.3); GFR 124.9; POTASSIUM 3.9 mmol/L (3.5-5.1)
[2018-10-07] MEDS: LACTOBACILLUS RHAMNOSUS GG 1 CAPSULE. PO SCH ×2 (08:49→20:39)
[2018-10-07] MEDS: OXYBUTYNIN CHLORIDE 5 MG TABLET PO SCH ×3 (08:50→20:39)
[2018-10-07] MEDS: CETIRIZINE HCL 10 MG TABLET PO SCH (08:50)
[2018-10-07 14:36] LABS: ALBUMIN 2.5 g/dL (3.4-5.0); DIRECT BILIRUBIN 0.3 mg/dL (0.0-0.2); TOTAL BILIRUBIN 2.3 mg/dL (0.2-1.0); TOTAL PROTEIN 5.9 g/dL (6.4-8.2)
[2018-10-07] MEDS: MELATONIN 3 MG TABLET PO SCH (20:39)
[2018-10-07] MEDS: ACETAMINOPHEN 650 MG/20.3 ML SOLUTION. PO PRN (20:39)
--- NOTE | 2018-10-07 23:12 | PN ---
DATE: 10/07/2018 SUBJECTIVE: The patient is resting, slightly propped up in bed, in no apparent respiratory distress. He is nonverbal, encephalopathic. Nursing staff did not voice any concerns, stated that he has an uneventful night. He apparently has been afebrile. Yesterday's temperature was 101.4. PHYSICAL EXAMINATION: GENERAL: When I examined him this afternoon, he looked well and was clearly in no apparent respiratory distress. No pallor, jaundice, cyanosis, or thyromegaly. No jugular venous distension. No lower limb edema. VITAL SIGNS: His heart rate was 73, blood pressure was 98/73, temperature was 98.2, respiratory rate was 20 and oxygen saturation was 99% on room air. HEAD, EYES, EARS, NOSE AND THROAT: Showed normocephalic, atraumatic. NECK: Supple. HEART: Showed normal first and second heart sounds. No gallop, rub or murmur. CHEST: Clear to auscultation. No crepitation or rhonchi. ABDOMEN: Distended, soft with a gastrostomy tube in place. He has also suprapubic catheter in place. NEUROLOGIC: He is encephalopathic, nonverbal, has quadriplegia with fixed flexion contracture of all 4 limbs. His intake over the last 24 hours was 2450, output was 2350. LABORATORY DATA: This morning showed a serum sodium 142, potassium 3.9, chloride 107, bicarbonate 30, anion gap of 5, BUN 11, creatinine 0.7. Estimated GFR was 125 mL per minute. His glucose was 92. Calcium was 8.5. His white cell count was 4700, hemoglobin 14, hematocrit 42, MCV 92 and platelet count of 78,000 with normal manual differential. His blood cultures have grown gram-negative rods. ASSESSMENT: Sepsis with the growth of gram-negative rods. The identification and sensitivity is still pending at the time of this dictation. The patient has traumatic brain injury with vegetative state and has quadriplegia with fixed flexion contracture of all 4 limbs. He has dysphagia for which he has a percutaneous endoscopic colostomy tube, neurogenic bladder requiring suprapubic catheter and questionable urinary tract infection. PLAN: Continue with IV antibiotic. Continue with nutritional support. Await the result of the culture and sensitivity. LLOYD DUBOIS MD DR: JEANETTE/rajni JOB#: [id number] / [id number]
[2018-10-08] VITALS (12 sets, daily range): BP systolic 97–129; BP diastolic 58–77
[2018-10-08 07:17] LABS: BASO # 0.1 x10^3/uL (0.0-0.2); BASO % 2 % (0-3); EOS # 0.2 x10^3/uL (0.0-0.7); EOS % 4 % (0-3); HEMATOCRIT 44.5 % (39.0-53.0); HEMOGLOBIN 15.3 g/dL (13.0-17.5); LYMPH # 1.2 x10^3/uL (1.0-4.8); LYMPH % 28 % (24-48); MEAN CORPUSCULAR HEMOGLOBIN 31 pg (25-35); MEAN CORPUSCULAR HGB CONC 34 g/dL (31-37); MEAN CORPUSCULAR VOLUME 91 fL (79-100); MONO # 0.4 x10^3/uL (0.0-1.1); MONO % 10 % (0-9); NEUT # 2.3 x10^3uL (1.8-7.7); NEUT % 56 % (31-73); PLATELET COUNT 91 x10^3/uL (140-400); RED BLOOD COUNT 4.88 x10^6/uL (4.30-5.70); RED CELL DISTRIBUTION WIDTH 12.7 % (11.5-14.5); WHITE BLOOD COUNT 4.2 x10^3/uL (4.0-11.0)
[2018-10-08 07:45] LABS: ALBUMIN 2.8 g/dL (3.4-5.0); ALBUMIN/GLOBULIN RATIO 0.9 (1.0-1.7); CALCIUM 8.7 mg/dL (8.5-10.1); CREATININE 0.7 mg/dL (0.7-1.3); GFR 124.9; POTASSIUM 4.3 mmol/L (3.5-5.1); TOTAL BILIRUBIN 1.6 mg/dL (0.2-1.0)
[2018-10-08] MEDS: OXYBUTYNIN CHLORIDE 5 MG TABLET PO SCH ×3 (08:44→20:47)
[2018-10-08] MEDS: CETIRIZINE HCL 10 MG TABLET PO SCH (08:44)
[2018-10-08] MEDS: LACTOBACILLUS RHAMNOSUS GG 1 CAPSULE. PO SCH ×2 (08:44→20:47)
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
[2018-10-08] MEDS: MELATONIN 3 MG TABLET PO SCH (20:48)
[2018-10-09 04:53] VITALS: BP 110/69
[2018-10-09 06:01] LABS: HEMATOCRIT 44.1 % (39.0-53.0); HEMOGLOBIN 15.1 g/dL (13.0-17.5); RED BLOOD COUNT 4.86 x10^6/uL (4.30-5.70); RED CELL DISTRIBUTION WIDTH 12.9 % (11.5-14.5); WHITE BLOOD COUNT 3.8 x10^3/uL (4.0-11.0)
[2018-10-09 06:19] LABS: ALBUMIN 2.7 g/dL (3.4-5.0); ALBUMIN/GLOBULIN RATIO 0.8 (1.0-1.7); CREATININE 0.8 mg/dL (0.7-1.3); GFR 107.1; POTASSIUM 4.4 mmol/L (3.5-5.1); TOTAL BILIRUBIN 1.6 mg/dL (0.2-1.0); TOTAL PROTEIN 6.2 g/dL (6.4-8.2)
[2018-10-09] MEDS: LACTOBACILLUS RHAMNOSUS GG 1 CAPSULE. PO SCH ×2 (07:34→20:18)
[2018-10-09] MEDS: CETIRIZINE HCL 10 MG TABLET PO SCH (07:34)
[2018-10-09] MEDS: OXYBUTYNIN CHLORIDE 5 MG TABLET PO SCH ×3 (07:34→20:19)
[2018-10-09 10:38] VITALS: BP 99/63
[2018-10-09] MEDS ORDERED: BISACODYL 10 MG SUPP.RECT PR PRN (11:30)
[2018-10-09] MEDS ORDERED: POLY17PO5 PO (11:49)
[2018-10-09] MEDS: POLYETHYLENE GLYCOL 3350 17 GM PACKET. PO SCH ×2 (11:52→20:18)
[2018-10-09 15:00] VITALS: BP 96/63
[2018-10-09] MEDS: ACETAMINOPHEN 650 MG/20.3 ML SOLUTION. PO PRN (18:00)
[2018-10-09 18:18] VITALS: BP 109/62
[2018-10-09] MEDS: MELATONIN 3 MG TABLET PO SCH (20:17)
[2018-10-09 23:00] VITALS: BP 118/72
[2018-10-10 03:28] VITALS: BP 93/58
--- NOTE | 2018-10-10 05:16 | PN ---
DATE: 10/09/2018 SUBJECTIVE: The patient is resting, slightly propped up in bed, in no apparent distress. He is encephalopathic, nonverbal; however, the nursing staff did not voice any concern. OBJECTIVE: GENERAL: When I examined him, he looked well and was clearly in no apparent respiratory distress. No pallor, jaundice, cyanosis, or thyromegaly. No jugular venous distension. No limb edema. VITAL SIGNS: His heart rate was 94, blood pressure was 96/63, temperature was 97.3, and respiratory rate 20, and oxygen saturation was 92% on room air. HEAD, EYES, EARS, NOSE AND THROAT: Showed normocephalic, atraumatic. NECK: Supple. HEART: Showed normal first and second sounds. No gallop, rub or murmur. CHEST: Clear to auscultation. No crepitation or rhonchi. ABDOMEN: Distended, soft. No guarding or rigidity. No organomegaly. All hernial orifices intact. Bowel sounds normal. NEUROLOGIC: He has severe anoxic encephalopathy. He is in vegetative state, has quadriplegia with fixed flexion contraction of all 4 limbs. He has dysphagia, status post percutaneous endoscopic gastrostomy tube placement as well as suprapubic catheter for neurogenic bladder. INTAKE AND OUTPUT: His intake over the last 24 hours was 2700 and output was 2650. LABORATORY DATA: As of this morning, his white cell count was 3800, hemoglobin 15, hematocrit 44, MCV 91, and platelet count of 106,000. His chemistry showed a serum sodium of 144, potassium 4.4, chloride 106, bicarbonate 32, anion gap of 6, BUN 14, creatinine 0.8, estimated GFR was 107. His total bilirubin is high. AST is slightly elevated. ALT and alkaline phosphatase are normal. Total protein was 6.2, albumin 2.7. His blood cultures have grown gram-negative rods. The identification and sensitivity is still pending at the time of this dictation. PLAN: My plan is to continue with the IV Levaquin. Hopefully, we will get the identification and sensitivity tomorrow and he can be discharged home on oral antibiotic. LLOYD DUBOIS MD DR: JEANETTE/rajni JOB#: [id number] / [id number]
[2018-10-10] MEDS: CETIRIZINE HCL 10 MG TABLET PO SCH (08:23)
[2018-10-10] MEDS: OXYBUTYNIN CHLORIDE 5 MG TABLET PO SCH ×2 (08:23→13:20)
[2018-10-10] MEDS: POLYETHYLENE GLYCOL 3350 17 GM PACKET. PO SCH (08:23)
[2018-10-10] MEDS: LACTOBACILLUS RHAMNOSUS GG 1 CAPSULE. PO SCH (08:24)
[2018-10-10] MEDS: ACETAMINOPHEN 650 MG/20.3 ML SOLUTION. PO PRN (08:25)
[2018-10-10 10:24] VITALS: BP 114/78
[2018-10-10 14:33] VITALS: BP 112/78
[2018-10-10] MEDS ORDERED: CIPR500T94 PO (15:37)
--- NOTE | 2018-10-10 16:10 | DS ---
DATE OF DISCHARGE: 10/10/2018 HOSPITAL COURSE: The patient is a 43-year-old male patient who was admitted with fever and was brought into the Emergency Room with severe sepsis. He was started on IV fluid and IV antibiotic. Finally his blood culture has grown Klebsiella oxytoca sensitive to Augmentin, ceftriaxone, ciprofloxacin, imipenem, meropenem, tetracycline and tobramycin. PHYSICAL EXAMINATION: GENERAL: When I examined today, he looked well and was clearly in no apparent respiratory distress. No pallor, jaundice, cyanosis or thyromegaly. No jugular venous distention. No limb edema. VITAL SIGNS: His heart rate was 82, blood pressure 112/78, temperature was 97.5, respiratory rate 20, and oxygen saturation was 95%. The rest of clinical examination is stable. LABORATORY DATA: Today showed a white cell count of 3800, hemoglobin 15, hematocrit 44, MCV 91, and platelet count of 106,000. His chemistry showed a serum sodium 144, potassium 4.4, chloride 106, bicarbonate 32, anion gap of 6, BUN 14, creatinine 0.8, estimated GFR was 107, glucose 86, calcium was 9, magnesium was 1.6. Total bilirubin was 1.6. AST, ALT, alkaline phosphatase were normal. Total protein was 6.2, albumin 2.7. DISCHARGE MEDICATIONS: He was discharged home to continue on ciprofloxacin 500 mg twice a day for 7 more days. He is on a baclofen pump, fexofenadine 30 mg p.o. b.i.d., melatonin 3 mg at bedtime, oxybutynin chloride 10 mg 3 times a day, polyethylene glycol 17 grams daily. FINAL DISCHARGE DIAGNOSES: Gram-negative septicemia with growth of Klebsiella oxytoca, urinary tract infection, traumatic brain injury. The patient has apparently also anoxic encephalopathy. He is in a vegetative state. He has quadriplegia with fixed flexion contraction of all 4 limbs, dysphagia for which he has a percutaneous endoscopic colostomy tube placement and neurogenic bladder requiring suprapubic catheter. LLOYD DUBOIS MD DR: JEANETTE/rajni JOB#: [id number] / [id number]
== END 2018-10-10 16:35 | disposition home or self-care (01) | DRG 871 ==
LOC: ER 19:05 → ICU 20:25 → 1 SOUTH 10-08 16:31
PROVIDERS: ADMIT Internal Medicine; ATTEND Internal Medicine
DX: A41.59 Other Gram-negative sepsis (principal); E43 Unspecified severe protein-calorie malnutrition; G82.50 Quadriplegia, unspecified; S06.9X9A Unspecified intracranial injury with loss of consciousness of unspecified duration, initial encounter; R17 Unspecified jaundice; G93.40 Encephalopathy, unspecified; G93.1 Anoxic brain damage, not elsewhere classified; N39.0 Urinary tract infection, site not specified; K21.9 Gastro-esophageal reflux disease without esophagitis; X58.XXXA Exposure to other specified factors, initial encounter; J20.9 Acute bronchitis, unspecified; R65.20 Severe sepsis without septic shock; R13.10 Dysphagia, unspecified; N31.9 Neuromuscular dysfunction of bladder, unspecified; F32.9 Major depressive disorder, single episode, unspecified; Z79.899 Other long term (current) drug therapy; Z68.22 Body mass index [BMI] 22.0-22.9, adult; Z81.8 Family history of other mental and behavioral disorders; Z82.5 Family history of asthma and other chronic lower respiratory diseases; Z87.442 Personal history of urinary calculi; Z87.820 Personal history of traumatic brain injury; Z93.3 Colostomy status; Z93.1 Gastrostomy status; Y93.89 Activity, other specified; Y92.89 Other specified places as the place of occurrence of the external cause; Y99.8 Other external cause status
CPT/HCPCS: 36415; 71045; 80048; 80053; 80076; 81001; 83605; 84145; 85007; 85025; 85027; 85045; 87040; 87070; 87077; 87186; 87205; 87641; 87804; 93005; 96365; J1956; J2020; 99285-25; J7030

== ENCOUNTER 2019-09-23 20:30 | Emergency (ER) | payer MEDICARE, OTHER ==
[~2019-09-23] VITALS: Ht 195.6 cm; Wt 83.1 kg
[~2019-09-23 20:30] MED LIST changes: +CIPR500T94 PO; -LINE600T PO; +LINE600T12 PO; -MELA3TAB2 PO; +MELA3TAB4 PO; +OXYB5TAB10 PO; -OXYB5TAB7 PO
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
[2019-09-23 20:56] VITALS: BP 105/77
== END 2019-09-23 21:06 | disposition home or self-care (01) ==
LOC: ER 20:30
DX: K94.29 Other complications of gastrostomy (principal); K21.9 Gastro-esophageal reflux disease without esophagitis; Z87.440 Personal history of urinary (tract) infections; Z87.820 Personal history of traumatic brain injury; Z88.2 Allergy status to sulfonamides; Z88.1 Allergy status to other antibiotic agents
CPT/HCPCS: 43762; 99284

== ENCOUNTER 2020-02-02 14:48 | Emergency (ER) | payer MEDICARE, OTHER ==
[~2020-02-02] VITALS: Ht 195.6 cm; Wt 90.9 kg
[2020-02-02] MEDS: NORMAL SALINE IV SCH ×2 (15:43→18:43)
--- NOTE | 2020-02-02 16:11 | RAD ---
INDICATION: Reason: fever / Spl. Instructions: / History: COMPARISON: October 05, 2018 FINDINGS: Single view of chest obtained. Cardiac mediastinal silhouette is similar to prior. Repeat demonstration of apparent calcified lymph nodes which could be sequela of old granulomatous disease. Hypoexpanded exam without a definite region of focal consolidation or edema IMPRESSION: * Hypoexpanded exam without a definite new region of airspace consolidation Electronically signed by: Ed Jenninsg MD (02/02/2020 4:08 PM) [id number]
--- NOTE | 2020-02-02 16:39 | EKG ---
[address] [address] Test Date: 2020-02-02 Test Time: 16:10:36 Pat Name: ETTA EATON Department: Room: Gender: M Family Services Specialist: : 1975 Requested By: LEAH PARIS Order Number: [id number] Reading MD: Measurements Intervals [place] Rate: 104 P: 59 NH: 138 QRS: 65 QRSD: 80 T: 14 QT: 310 QTc: 413 Interpretive Statements SINUS TACHYCARDIA OTHERWISE NORMAL ECG RI6.02 No previous ECG available for comparison
[2020-02-02 16:41] LABS: BASO % 0 % (0-3); EOS % 0 % (0-3); HEMATOCRIT 48.2 % (39.0-53.0); HEMOGLOBIN 16.7 g/dL (13.0-17.5); LYMPH # 0.2 x10^3/uL (1.0-4.8); LYMPH % 2 % (24-48); MEAN CORPUSCULAR HEMOGLOBIN 32 pg (25-35); MEAN CORPUSCULAR HGB CONC 35 g/dL (31-37); MEAN CORPUSCULAR VOLUME 92 fL (79-100); MONO # 1.3 x10^3/uL (0.0-1.1); MONO % 9 % (0-9); NEUT # 13.8 x10^3uL (1.8-7.7); NEUT % 90 % (31-73); PLATELET COUNT 111 x10^3/uL (140-400); RED BLOOD COUNT 5.23 x10^6/uL (4.30-5.70); RED CELL DISTRIBUTION WIDTH 12.8 % (11.5-14.5); WHITE BLOOD COUNT 15.4 x10^3/uL (4.0-11.0)
[2020-02-02 16:51] LABS: CALCIUM 9.2 mg/dL (8.5-10.1); CREATININE 0.9 mg/dL (0.7-1.3); GFR 92.5; POTASSIUM 3.6 mmol/L (3.5-5.1)
[2020-02-02 16:56] LABS: ALBUMIN 3.3 g/dL (3.4-5.0); ALBUMIN/GLOBULIN RATIO 0.8 (1.0-1.7); TOTAL BILIRUBIN 6.5 mg/dL (0.2-1.0); TOTAL PROTEIN 7.3 g/dL (6.4-8.2)
[2020-02-02 17:03] LABS: BILIRUBIN,URINE MOD (NEG); CLARITY,URINE CLOUDY; COLOR,URINE AMBER; GLUCOSE,URINE NEG (NEG)
[2020-02-02 17:04] LABS: AMORPHOUS SEDIMENT,UR PRESENT /HPF; BACTERIA,URINE MANY /HPF (0-FEW); NITRITE,URINE POS (NEG); WBC,URINE OCC /HPF (0-4)
[2020-02-02] MEDS ORDERED: IOHEXOL 300 MG/ML 75 ML VIAL. IV ONE (17:15)
[2020-02-02] MEDS ORDERED: CONTRAST GIVEN MC PRN (17:15)
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
--- NOTE | 2020-02-02 18:12 | RAD ---
Exam: CT abdomen and pelvis with contrast INDICATION: Fever, elevated transaminase TECHNIQUE: Sequential axial images through the abdomen and pelvis obtained following the administration of 75 mL of Omni 300 IV contrast. Sagittal and coronal reformatted images were reconstructed from the axial data and reviewed. Comparisons: None FINDINGS: Heart size is normal. No pericardial effusion. Strandy opacities noted at the lung bases, likely representing atelectasis. No pleural effusion. Liver, spleen, pancreas and adrenals are unremarkable. Numerous gallstones are noted within the gallbladder. Gallbladder is distended with adjacent pericholecystic fluid. Kidneys demonstrate symmetric enhancement. No perinephric inflammation or hydronephrosis. No renal or ureteral calculi are identified. Bladder is decompressed not well evaluated. Uterus is absent. No abnormal adnexal mass. Large and small bowel are unremarkable. Percutaneous gastrostomy tube is noted within the stomach. Appendix is normal. No free abdominal air or fluid. No obstruction. Abdominal aorta has a normal course and caliber. Abdominal vasculature is patent. No enlarged intra-abdominal lymph nodes are identified. Severe degenerative change/dysplasia at the left hip joint. No suspicious osseous lesions or acute fractures. IMPRESSION: Cholelithiasis with pericholecystic fluid and distended gallbladder. Findings are suspicious for acute cholecystitis. HIDA scan would better evaluate if further evaluation is necessary. Exposure: One or more of the following in the visualized dose reduction techniques were utilized for this examination: 1. Automated exposure control 2. Adjustment of the MA and/or KV according to patient size 3. Use of iterative of reconstructive technique Electronically signed by: Kelli Moreira MD (02/02/2020 6:08 PM) [id number]
[2020-02-02 18:17] LABS: % BANDS 9 % (0-9); % LYMPHS 2 % (24-48); % MONOS 5 % (0-10); % SEGS 84 % (35-66)
[2020-02-02 18:18] LABS: PLT ESTIMATE DECREASED (ADEQUATE)
[2020-02-02] MEDS ORDERED: PIPERACILLIN/TAZOBACTAM 3.375 GM in IV NORMAL SALINE 50ML 50 ML IV ONE (18:30)
[2020-02-02] MEDS ORDERED: PIPERACILLIN/TAZOBACTAM 3.375 GM VIAL IV ONE (18:40)
[2020-02-02] MEDS ORDERED: IV NORMAL SALINE 50ML 50 ML ONE (18:40)
[2020-02-02 21:20] VITALS: BP 126/74
== END 2020-02-02 21:35 | disposition short-term general hospital (02) ==
LOC: ER 14:48
DX: K81.0 Acute cholecystitis (principal); Z20.828 Contact with and (suspected) exposure to other viral communicable diseases; R50.9 Fever, unspecified; K21.9 Gastro-esophageal reflux disease without esophagitis; N15.9 Renal tubulo-interstitial disease, unspecified; Z87.820 Personal history of traumatic brain injury; Z98.890 Other specified postprocedural states; Z88.2 Allergy status to sulfonamides; Z88.1 Allergy status to other antibiotic agents; Z79.899 Other long term (current) drug therapy
CPT/HCPCS: 36415; 71045; 74177; 80053; 81001; 83605; 85007; 85025; 87040; 87086; 93005; 96365; 96366; 99285; J2543; J7030; Q9967; U0003

== ENCOUNTER 2020-11-23 08:08 | Inpatient (IN) | payer MEDICARE, OTHER ==
[~2020-11-23] VITALS: Ht 195.6 cm; Wt 91.7 kg
[2020-11-23] VITALS (11 sets, daily range): BP systolic 82–119; BP diastolic 50–83
[~2020-11-23 08:08] MED LIST changes: -LACT10SO PO; +LACT10SO2 PO
[2020-11-23] MEDS ORDERED: IV NORMAL SALINE 1,000ML 1,000 ML IV ONE ×4 (08:15→14:00)
[2020-11-23] MEDS ORDERED: ACETAMINOPHEN 650 MG/20.3 ML SOLUTION. PO ONE (08:30)
[2020-11-23] MEDS ORDERED: PIPERACILLIN/TAZOBACTAM 4.5 GM in IV NORMAL SALINE 50ML 50 ML IV ONE (08:30)
[2020-11-23 08:38] LABS: BASO % 1 % (0-3); EOS % 0 % (0-3); HEMATOCRIT 50.2 % (39.0-53.0); HEMOGLOBIN 17.2 g/dL (13.0-17.5); LYMPH # 0.1 x10^3/uL (1.0-4.8); LYMPH % 8 % (24-48); MEAN CORPUSCULAR HEMOGLOBIN 32 pg (25-35); MEAN CORPUSCULAR HGB CONC 34 g/dL (31-37); MEAN CORPUSCULAR VOLUME 93 fL (79-100); MONO % 1 % (0-9); NEUT # 1.6 x10^3uL (1.8-7.7); NEUT % 90 % (31-73); PLATELET COUNT 92 x10^3/uL (140-400)
--- NOTE | 2020-11-23 08:40 | RAD ---
XR CHEST 1V 11/23/2020 8:24 AM INDICATION: Fever COMPARISON: 02/02/2020 TECHNIQUE: Portable frontal view of the chest is provided. FINDINGS: The cardiomediastinal silhouette is similar in appearance. 5 mm calcified granuloma identified in the lateral right lung base. Patient is rotated, limiting evaluation. Calcified right hilar lymph node i s identified. No new airspace consolidation is suspected. There are no significant pleural effusions. There is no pulmonary vascular congestion. No pneumothora x. Sclerotic changes of the right first rib are again noted. No suspicious osseous abnormality. IMPRESSION: There is no acute cardiopulmonary process. Electronically signed by: Jess Joseph MD (11/23/2020 8:38 AM) [id number]
[2020-11-23] MEDS ORDERED: IV NORMAL SALINE 50ML 50 ML ONE (08:41)
[2020-11-23] MEDS ORDERED: PIPERACILLIN/TAZOBACTAM 4.5 GM VIAL IV ONE (08:42)
[2020-11-23 08:48] LABS: WHITE BLOOD COUNT 1.7 x10^3/uL (4.0-11.0)
[2020-11-23 08:53] LABS: CALCIUM 9.1 mg/dL (8.5-10.1); CREATININE 0.8 mg/dL (0.7-1.3); GFR 105.5
--- NOTE | 2020-11-23 08:54 | PHYS DOC ---
Past History Past Medical History: Other Additional Past Medical Histor: TBI Past Medical History Limited secondary to baseline mentation Past Surgical History: Other Additional Past Surgical Histo: suprapubic catheter, gastric tube, baclofen pump Past Surgical History Limited secondary to baseline mentation Smoking: Non-smoker Alcohol Use: None Drug Use: None Social History Limited secondary to baseline mentation General Adult EDM: Chief Complaint: FEVER HPI: HPI: 45 year old male with past medical history of traumatic brain injury who is nonverbal at baseline presents via EMS from his home with report of appearing unwell and with fever. Mother is sole sales and service engineer of patient and reports he was not acting normally and appeared more tired than normal. Patient does have a indwelling Hatch catheter which mother reports was changed last month. Patient also with PEG tube. No history of known recent trauma. History of present illness limited secondary to baseline mentation Review of Systems: Review of Systems: Review of systems limited secondary to baseline mentation Current Medications: Current Meds: Current Medications Medications (Trade) Dose Ordered Sig/Ike Start Time Stop Time Status Last Admin Dose Admin Acetaminophen (Tylenol Oral Soln) 650 mg 1X ONCE 11/23/20 08:30 11/23/20 08:31 DC Piperacillin Sod/ Tazobactam Sod (Zosyn) 4.5 gm STK-MED ONCE 11/23/20 08:42 11/23/20 08:42 DC Piperacillin Sod/ Tazobactam Sod 4.5 gm/Sodium Chloride 50 ml @ 100 mls/hr 1X ONCE 11/23/20 08:30 11/23/20 08:59 Sodium Chloride 50 ml @ As Directed STK-MED ONCE 11/23/20 08:41 11/23/20 08:41 DC Allergies: Allergies: Allergies Coded Allergies Type Severity Reaction Last Updated Verified Sulfa (Sulfonamide Antibiotics) Allergy Intermediate 02/06/15 Yes vancomycin Allergy Intermediate 02/06/15 Yes Uncoded Allergies Type Severity Reaction Last Updated Verified AQUACEL FOAM DRESSING Allergy Intermediate 05/26/14 Physical Exam: PE: Constitutional: Well-nourished, extremity contractures and atrophy noted HENT: Normocephalic, atraumatic, tongue dry Eyes: PERRL, conjunctiva normal, no discharge Neck: Normal range of motion, no tenderness, supple Lungs & Thorax: Tachypnea, equal chest rise and fall Cardiovascular: Tachycardia, cap refill less than 2 seconds Abdomen: Soft, no tenderness, PEG tube in position, suprapubic catheter noted with surrounding some bloody discharge noted Skin: Warm, dry Extremities: Significant contractures noted to bilateral lower extremities as well as left upper extremity, some range of motion noted to right arm, no edema Neurologic: Unable to follow commands, solmnulent, noncomprehensable sounds Current Patient Data: Labs: Laboratory Tests Test 11/23/20 08:21 White Blood Count 1.7 x10^3/uL (4.0-11.0) *L Red Blood Count 5.40 x10^6/uL (4.30-5.70) Hemoglobin 17.2 g/dL (13.0-17.5) Hematocrit 50.2 % (39.0-53.0) Mean Corpuscular Volume 93 fL (79-100) Mean Corpuscular Hemoglobin 32 pg (25-35) Mean Corpuscular Hemoglobin Concent 34 g/dL (31-37) Red Cell Distribution Width 13.0 % (11.5-14.5) Platelet Count 92 x10^3/uL (140-400) L Neutrophils (%) (Auto) 90 % (31-73) H Lymphocytes (%) (Auto) 8 % (24-48) L Monocytes (%) (Auto) 1 % (0-9) Eosinophils (%) (Auto) 0 % (0-3) Basophils (%) (Auto) 1 % (0-3) Neutrophils # (Auto) 1.6 x10^3uL (1.8-7.7) L Lymphocytes # (Auto) 0.1 x10^3/uL (1.0-4.8) L Monocytes # (Auto) 0.0 x10^3/uL (0.0-1.1) Eosinophils # (Auto) 0.0 x10^3/uL (0.0-0.7) Basophils # (Auto) 0.0 x10^3/uL (0.0-0.2) Platelet Estimate Pending Vital Signs: Vital Signs Date Time Temp Pulse Resp B/P (MAP) Pulse Ox O2 Delivery O2 Flow Rate FiO2 11/23/20 08:10 101.8 116 26 120/69 (86) 95 Room Air EKG: EKG: @0920 Sinus tachycardia at 128bpm, baseline artifact noted, NO ST elevation, QRS 84ms, QT/QTc 326/479ms Radiology/Procedures: Radiology/Procedures: PROCEDURE: CHEST AP ONLY XR CHEST 1V 11/23/2020 8:24 AM INDICATION: Fever COMPARISON: 02/02/2020 TECHNIQUE: Portable frontal view of the chest is provided. FINDINGS: The cardiomediastinal silhouette is similar in appearance. 5 mm calcified granuloma identified in the lateral right lung base. Patient is rotated, limiting evaluation. Calcified right hilar lymph node is identified. No new airspace consolidation is suspected. There are no significant pleural effusions. There is no pulmonary vascular congestion. No pneumothorax. Sclerotic changes of the right first rib are again noted. No suspicious osseous abnormality. IMPRESSION: There is no acute cardiopulmonary process. Electronically signed by: Jess Joseph MD (11/23/2020 8:38 AM) [id number] PROCEDURE: CHEST AP ONLY XR CHEST 1V History: Reason: s/p RIJ central line placement / Spl. Instructions: / History: Comparison: November 23, 2020 Findings: Interval placement right IJ central line with tip projecting over the mid SVC. Ill-defined bibasilar opacities, unchanged. No pneumothorax. Prior granulomatous disease within the chest. Impression: 1. Interval placement right IJ central line. No pneumothorax. Electronically signed by: Terry Meier DO (11/23/2020 12:33 PM) [id number] Heart Score: C/O Chest Pain: N/A Course & Med Decision Making: Course & Med Decision Making Pertinent Labs and Imaging studies reviewed. (See chart for details) Patient presents with fever. Patient is nonverbal at baseline. Fever noted upon arrival. Patient does have indwelling suprapubic catheter as well as PEG tube. Some bloody discharge noted around suprapubic catheter. Concern for possible sepsis given positive SIRS criteria with tachycardia, tachypnea, and fever. IV fluid hydration provided. Empiric antibiotic initiated. Suprapubic catheter exchanged and new UA obtained. UA with signs of infection. Labs obtained and posted to chart. Neutropenia noted. Lactic acidosis equals 4. Patient meets criteria for septic shock. Chest x-ray without acute process. Given pandemic a Covid test was obtained although patient less likely given lack of exposure per mother. Patient has not received Covid vaccinations. Central line after written consent from mother placed given acuity of condition. Patient requiring admission for further evaluation and treatment. Discussed with Dr. Jones (hospitalist) who is in agreement with admission. Discussed findings and plan with patient, who acknowledges understanding and agreement. COVID-19 CRITERIA: The patient was evaluated during the global COVID-19 pandemic, and that diagnosis was suspected/considered upon their initial presentation. Their evaluation, treatment and testing was consistent with current guidelines for patients who present with complaints or symptoms that may be related to COVID-19. Dragon Disclaimer: Dragon Disclaimer: This electronic medical record was generated, in whole or in part, using a voice recognition dictation system. Central Line Central Line : Central Line Lumen: triple Central Line Procedure: sterile drapes applied, sterile dressing applied Central Line Postion: internal jugular (R) Anesthesia: Lidocaine (1% without) cc's of anesthesia: 3 Complications: none Central Line Post Position: sutured, good blood return, position confirmed w/ CXR Progress Written consent obtained from mother. Time out performed. Hand hygiene utilized. Sterile attire donned. Region of right IJ cleaned with ChloraPrep. Sterile drape applied. Bedside ultrasound utilized with location of compressible oval- shaped, nonpulsatile, hypoechoic structure consistent for right IJ. Lidocaine local infiltration utilized. A triple-lumen catheter placed over guidewire Via Seldinger technique. Guidewire was successfully removed. Of note during gu idewire placement some increased tachycardia arrhythmia was appreciated which improved after partial retraction of guidewire. Catheter secured in place with sutured and sterile dressing applied. Patient tolerated procedure well and without difficulty. Additional Procedures Progress Suprapubic catheter exchange by physician Implied consent utilized given critical condition of patient. Time out performed. Old suprapubic catheter successfully removed and appeared intact. Hand hygiene utilized. Sterile gloves donned. Wound cleaned with Betadine x3 wants. Successful placement of 18 [place] catheter with 10 cc balloon placed under sterile technique with positive urine return. Catheter secured in place with leg sticker. Patient tolerated procedure well and without difficulty. Departure Departure: Impression: Primary Impression: Septic shock Additional Impressions: Hx of traumatic brain injury Complicated UTI (urinary tract infection) Hypomagnesemia Suspected 2019 novel coronavirus infection Disposition: ADMITTED INPATIENT (ICU) Admitting Physician: Letty Jones Condition: GUARDED Referrals: YANELI TREJO MD (PCP) COVID-19 Assessment COVID-19 Patient Risks: Age 65 or older: No Sign of co-morbidity: No Exp to person + for COVID: No Exp to PUI: No Travel from affected area: No Lower respiratory symptoms: No Fever: Yes PPE Use: Full PPE with N95 mask or PAPR: Yes Sepsis Assessment Date and Time of Assessment Date: November 23, 2020 Time: 10:59 Fluid Challenge: Is the fluid challenge complet: No IBW Target Volume Used: No BMI > 30: No Vital Signs Vital Signs Vital Signs Date Time Temp Pulse Resp B/P (MAP) Pulse Ox O2 Delivery O2 Flow Rate FiO2 11/23/20 10:43 100.5 11/23/20 08:10 116 26 120/69 (86) 95 Room Air Temperature Source: Axillary Respirations Respiratory Effort: Non-Labored Respiratory Pattern: Tachypnea Cardiovascular Pulse Rhythm: Irregular Heart: S1 and S2 normal Lung Sounds Breath Sounds: Diminished Capillary Refill Capillary Refill: Rt Hand < 3 seconds Peripheral Pulse Pulse Location: Radial Pulse Strength: Normal (2+) Pulse Assessment Method: Palpation Integumentary Skin: Warm, Dry Skin Moisture: Dry Skin Turgor: Normal Skin Color: warm, dry Fingernail Color: WNL Critical Care Time Critical care time was 30 minutes which includes time at bedside, spent in discussion of patient's care with specialists and/or family members, with interpretation of laboratory and/or radiological studies and is exclusive of procedures. CARROL LUGO DO November 23, 2020 08:54
[2020-11-23 08:59] LABS: ALBUMIN 3.6 g/dL (3.4-5.0); ALBUMIN/GLOBULIN RATIO 0.9 (1.0-1.7); MAGNESIUM 1.7 mg/dL (1.8-2.4); TOTAL BILIRUBIN 2.6 mg/dL (0.2-1.0); TOTAL PROTEIN 7.8 g/dL (6.4-8.2)
[2020-11-23] MEDS ORDERED: MAGNESIUM SULFATE 2GM 50 ML IV ONE (09:15)
[2020-11-23 10:01] LABS: COLOR,URINE YELLOW
[2020-11-23 10:02] LABS: BILIRUBIN,URINE NEG (NEG); CLARITY,URINE CLOUDY; GLUCOSE,URINE NEG (NEG); NITRITE,URINE NEG (NEG); UROBILINOGEN,URINE 0.2 mg/dL (0.2 mg/dL)
[2020-11-23 10:06] LABS: BACTERIA,URINE FEW /HPF (0-FEW); SQUAMOUS EPITHELIAL CELL,UR OCC /LPF; WBC,URINE TNTC /HPF (0-4)
--- NOTE | 2020-11-23 10:49 | EKG ---
[address] [address] Test Date: 2020-11-23 Test Time: 09:20:06 Pat Name: ETTA EATON Department: Room: Gender: M Miter Saw Operator: SHEYLA : 1975 Requested By: CARROL LUGO Order Number: [id number] Reading MD: Measurements Intervals [place] Rate: 128 P: 90 CA: 122 QRS: 102 QRSD: 84 T: 50 QT: 326 QTc: 479 Interpretive Statements SINUS TACHYCARDIA RIGHTWARD AXIS NO SPECIFIC ECG ABNORMALITIES RI6.02 No previous ECG available for comparison
[2020-11-23] MEDS ORDERED: IV NORMAL SALINE 1,000ML 1,000 ML IV SCH (11:15)
[2020-11-23] MEDS ORDERED: IBUPROFEN 100 MG/5 ML ORAL.SUSP. PEG ONE (11:15)
[2020-11-23] MEDS ORDERED: ONDANSETRON PF 4 MG/2 ML VIAL. IVP PRN (11:15)
[2020-11-23] MEDS ORDERED: ACETAMINOPHEN 325 MG TABLET PO PRN (11:30)
--- NOTE | 2020-11-23 12:35 | RAD ---
XR CHEST 1V History: Reason: s/p RIJ central line placement / Spl. Instructions: / History: Comparison: November 23, 2020 Findings: Interval placement right IJ central line with tip projecting over the mid SVC. Ill-defined bibasilar opacities, unchanged. No pneumothorax. Prior granulomatous disease within the chest. Impression: 1. Interval placement right IJ central line. No pneumothorax. Electronically signed by: Terry Meier DO (11/23/2020 12:33 PM) [id number]
[2020-11-23] MEDS ORDERED: SIME125T PO (14:01)
[2020-11-23] MEDS: IV NORMAL SALINE 1,000ML 1,000 ML IV SCH ×3 (14:02→21:38)
--- NOTE | 2020-11-23 14:15 | HP ---
ADMIT DATE: 11/23/2020 HISTORY OF PRESENT ILLNESS: The patient is a 45-year-old male patient who was brought to the emergency room with a fever, further evaluation showed that the patient was hypotensive, febrile, temperature was 101.8, the heart rate was 116 and blood pressure was actually initially was slightly within normal range with drop down. His lab work showed that he has severe leukopenia with a white cell count of 1.7, his platelets are low also at 92,000. Although, his hemoglobin and hematocrit were normal. His chemistry showed that he has also lactic acidosis and urinalysis showed that the patient has moderate amount of leukocyte esterase, 6-10 rbc's and too numerous to count wbc's and although the bacteria were very few. His chest x-ray showed no acute cardiopulmonary process and he has had a central line placed and repeat chest x-ray also showed interval placement of the right internal jugular central line, no pneumothorax. The patient was admitted with severe sepsis likely due to urinary tract infection with leukopenia and thrombocytopenia. He has had blood and urine sent for culture and sensitivity and has received a total of 3 liters of fluid in the Emergency Room, he was started also on Zosyn, Zyvox as well as levofloxacin, and was admitted to the ICU for further evaluation and treatment. PAST MEDICAL HISTORY: Significant for traumatic brain injury, anoxic encephalopathy. 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 PAST SURGICAL HISTORY: Significant for gastrostomy tube placement percutaneous and suprapubic catheter placement. ALLERGIES: HE IS ALLERGIC TO SULFA AND VANCOMYCIN. FAMILY HISTORY: Unobtainable. SOCIAL HISTORY: He is at home, he lives with his mom; however, he does not smoke, drink alcohol or use any recreational drugs. REVIEW OF SYSTEMS: Unobtainable. PHYSICAL EXAMINATION: GENERAL: On arrival to the emergency room, he was slightly tachypneic. There is no pallor, jaundice, cyanosis, or thyromegaly. No jugular venous distention, no lower limb edema. VITAL SIGNS: His heart rate was 116, blood pressure is 120/69, temperature was 101.8, respiratory rate 26, and oxygen saturation was 95%. HEAD, EYES, EARS, NOSE AND THROAT: Showed normocephalic. NECK: Supple, with no lymphadenopathy or thyromegaly. HEART: Showed normal first and second heart sounds, no gallop, murmur. CHEST: Clear to auscultation, no crepitation or rhonchi. ABDOMEN: Distended, soft with gastrostomy tube as well as suprapubic catheter. There is no guarding or rigidity. No organomegaly. All hernial orifice intact. Bowel sounds normal. NEUROLOGIC: He has severe anoxic encephalopathy, nonverbal. 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 He has actually a baclofen pump in the right lower quadrant. He obviously has dysphagia, which has a gastrostomy tube placed and neurogenic bladder requiring suprapubic catheter. LABORATORY DATA: On arrival showed a white cell count of 1700, hemoglobin 17, hematocrit 50, MCV 93, and platelet count of 193,000 with 90% polymorphs, 8% lymphocytes. His chemistry this morning showed a serum sodium 141, potassium 4, chloride 100, bicarbonate 31, anion gap of 10, BUN 17, creatinine 0.8. Estimated GFR was 105 mL per minute. His glucose 104. Lactic acid was 4. His calcium was 9.1, magnesium 1.7. His total bilirubin was high at 2.6; however, AST, ALT, alkaline phosphatase were all normal. CK was 66, total protein 7.8, albumin was 3.6. Urinalysis showed the urine was yellow, cloudy with a pH of 8, specific gravity of 1.015. There was large amount of protein. The urine was negative for glucose, ketones. There was large amount of blood, negative for nitrite and bilirubin. There is moderate amount of leukocyte esterase, 6-10 rbc's, too numerous to count wbc's. ASSESSMENT AND PLAN: The patient was admitted with septic shock due to complicated urinary tract infection. He has also hypomagnesemia, severe leukopenia and thrombocytopenia. He was swabbed for COVID-19, although clinically he lives at home with his mother only rarely, but very limited exposure. We will continue with IV fluid and IV antibiotic in the form of Zosyn and Zyvox as well as I am not sure the levofloxacin will be needed and obviously adjust the antibiotic according to the culture and sensitivity. JEANETTE/JACK DR: JEANETTE/rajni TID: [id number]
[2020-11-23 15:55] LABS: % ATYL 2 % (0-0); % BANDS 23 % (0-9); % BASOS 1 % (0-3); % LYMPHS 8 % (24-48); % MONOS 1 % (0-10); % SEGS 65 % (35-66)
[2020-11-23 15:58] LABS: PLT ESTIMATE ADEQUATE (ADEQUATE); STOMATOCYTES PRESENT
[2020-11-23] MEDS: SIMETHICONE 80 MG TAB.CHEW PO SCH ×2 (16:54→21:36)
[2020-11-23] MEDS: OXYBUTYNIN CHLORIDE 5 MG TABLET PO SCH ×2 (16:54→21:36)
[2020-11-23] MEDS: PIPERACILLIN/TAZOBACTAM 4.5 GM in IV NORMAL SALINE 50ML 50 ML IV SCH (16:55)
[2020-11-23] MEDS ORDERED: MELATONIN 3 MG TABLET PO SCH (21:00)
[2020-11-23] MEDS: POLYETHYLENE GLYCOL 3350 17 GM PACKET. PO SCH (21:36)
[2020-11-23] MEDS: ACETAMINOPHEN 650 MG/20.3 ML SOLUTION. PEG PRN (21:37)
[2020-11-24] VITALS (23 sets, daily range): BP systolic 96–131; BP diastolic 52–78
[2020-11-24] MEDS: PIPERACILLIN/TAZOBACTAM 4.5 GM in IV NORMAL SALINE 50ML 50 ML IV SCH ×5 (00:02→23:46)
[2020-11-24] MEDS ORDERED: CONTRAST GIVEN. MC PRN (04:30)
[2020-11-24] MEDS ORDERED: IOHEXOL 240 MG/ML 50ML VIAL. PO ONE (05:00)
--- NOTE | 2020-11-24 05:14 | RAD ---
INDICATION: Reason: Pulled out PEG,placed Hatch cath as temp tube-placement check / Spl. Instructions : Omni 240 30cc: Unable to follow breath hold / History: COMPARISON: February 02, 2020 IMPRESSION: Abdomen: Single view obtained. Air scattered throughout the large and small bowel in a grossly nonobs tructive pattern. Contrast is seen within the stomach after injection through the percutaneous gastro stomy tube. Degenerative changes of spine. Compression deformity at some of the lower thoracic verteb ral bodies. Electronically signed by: Ed Jennings MD (11/24/2020 5:12 AM) [id number]
[2020-11-24] MEDS: IV NORMAL SALINE 1,000ML 1,000 ML IV SCH ×4 (05:58→23:46)
[2020-11-24 06:45] LABS: ALBUMIN 2.5 g/dL (3.4-5.0); ALBUMIN/GLOBULIN RATIO 0.7 (1.0-1.7); CREATININE 0.8 mg/dL (0.7-1.3); GFR 105.5; POTASSIUM 3.8 mmol/L (3.5-5.1); TOTAL BILIRUBIN 2.9 mg/dL (0.2-1.0); TOTAL PROTEIN 5.9 g/dL (6.4-8.2)
[2020-11-24 06:55] LABS: BASO % 0 % (0-3); EOS % 0 % (0-3); HEMATOCRIT 42.3 % (39.0-53.0); HEMOGLOBIN 14.5 g/dL (13.0-17.5); LYMPH # 0.6 x10^3/uL (1.0-4.8); LYMPH % 4 % (24-48); MEAN CORPUSCULAR HEMOGLOBIN 32 pg (25-35); MEAN CORPUSCULAR HGB CONC 34 g/dL (31-37); MEAN CORPUSCULAR VOLUME 92 fL (79-100); MONO % 6 % (0-9); NEUT # 14.5 x10^3uL (1.8-7.7); NEUT % 89 % (31-73); PLATELET COUNT 82 x10^3/uL (140-400); RED BLOOD COUNT 4.58 x10^6/uL (4.30-5.70); RED CELL DISTRIBUTION WIDTH 13.1 % (11.5-14.5); WHITE BLOOD COUNT 16.2 x10^3/uL (4.0-11.0)
[2020-11-24] MEDS: POLYETHYLENE GLYCOL 3350 17 GM PACKET. PO SCH ×2 (09:00→20:41)
[2020-11-24] MEDS ORDERED: CETIRIZINE HCL 10 MG TABLET PO SCH (09:00)
[2020-11-24] MEDS: SIMETHICONE 80 MG TAB.CHEW PO SCH (09:00)
[2020-11-24] MEDS: OXYBUTYNIN CHLORIDE 5 MG TABLET PO SCH (09:44)
[2020-11-24 10:53] LABS: % BANDS 27 % (0-9); % LYMPHS 3 % (24-48); % MONOS 8 % (0-10); % MYELOS 1 % (0-0); % SEGS 61 % (35-66); PLT ESTIMATE DECREASED (ADEQUATE)
[2020-11-24] MEDS: SIMETHICONE 80 MG TAB.CHEW PEG SCH ×3 (12:38→20:41)
[2020-11-24] MEDS: OXYBUTYNIN CHLORIDE 5 MG TABLET PEG SCH ×3 (12:38→20:41)
[2020-11-24] MEDS ORDERED: SENN8.6T11 PO (16:22)
[2020-11-24] MEDS ORDERED: [UNRECOGNIZED DRUG - CODE] PO (16:22)
[2020-11-24] MEDS ORDERED: WHEA1POW5 PO (16:22)
[2020-11-24] MEDS: HYDROcodone/APAP 10/325 1 TAB TABLET FT PRN (18:21)
[2020-11-24] MEDS: ACETAMINOPHEN 650 MG/20.3 ML SOLUTION. PEG PRN (19:13)
[2020-11-24] MEDS: MELATONIN 3 MG TABLET PEG SCH (20:41)
--- NOTE | 2020-11-24 22:38 | PN ---
DATE: 11/24/2020 SUBJECTIVE: The patient is resting, propped up in bed. He is definitely more awake, alert, making hollering and yelling, but obviously he is unable to talk. PHYSICAL EXAMINATION: GENERAL: When I examined him, he looked well and there was no pallor, jaundice, cyanosis, or thyromegaly. No limb edema. VITAL SIGNS: His heart rate was 100, blood pressure was 110/70, temperature was 98.6, respiratory rate was 26 and oxygen saturation was 97% on room air. HEAD, EYES, EARS, NOSE AND THROAT: Normocephalic, status post traumatic brain injury, anoxic encephalopathy. NECK: Supple. HEART: Normal first and second heart sounds. No gallop or murmur. CHEST: Clear to auscultation. No crepitation or rhonchi. ABDOMEN: Distended, soft. Apparently, he dislodges his gastrostomy tube and a Hatch catheter was placed in successfully. He also has suprapubic catheter in place. NEUROLOGIC: He is encephalopathic with severe spastic quadriplegia and neurogenic bladder requiring suprapubic catheter. His intake over the last 24 hours and the output are incompletely recorded. LABORATORY DATA: His lab work showed a white cell count of 16,200, hemoglobin 14.5, hematocrit 42, MCV 92 and platelet count of 82,000. His chemistry showed a serum sodium of 145, potassium 3.8, chloride 109, bicarbonate 28, anion gap of 8, BUN 16, creatinine 0.8. Estimated GFR was 105 mL per minute. His glucose was 79, calcium was 8, total protein was 2.9. AST, ALT, alkaline phosphatase were normal. His total protein was 5.9, albumin was 2.5. His urine culture has grown more than 100,000 colony forming units per mL and 3 or more organisms isolated, results are consistent with colonization or contamination during the collection process. I will contact the microbiology department at [facility] to make sure that they culture all this and get the identification and sensitivity. ASSESSMENT: 1. Septic shock due to Gram-negative bacteria, has severe leukopenia that has improved. 2. Thrombocytopenia. 3. Traumatic brain injury with severe anoxic encephalopathy. 4. The patient is in a vegetative state. 5. 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 6. Dysphagia for which he has a percutaneous endoscopic gastrostomy tube placed. Unfortunately, it was dislodged yesterday and we placed Hatch catheter. 7. Neurogenic bladder for which he has a suprapubic catheter. PLAN: To continue with IV fluid. Continue with IV antibiotic. Once we have the identification and sensitivity, we will deescalate the antibiotic. SABRINA DR: Esdras TID: [id number]
[2020-11-25] VITALS (23 sets, daily range): BP systolic 98–132; BP diastolic 57–95
[2020-11-25] MEDS: HYDROcodone/APAP 10/325 1 TAB TABLET FT PRN ×3 (04:23→23:00)
[2020-11-25] MEDS: PIPERACILLIN/TAZOBACTAM 4.5 GM in IV NORMAL SALINE 50ML 50 ML IV SCH ×3 (05:42→16:50)
[2020-11-25] MEDS: IV NORMAL SALINE 1,000ML 1,000 ML IV SCH ×3 (05:43→20:54)
[2020-11-25 09:23] LABS: BASO % 0 % (0-3); EOS # 0.1 x10^3/uL (0.0-0.7); EOS % 1 % (0-3); HEMATOCRIT 41.6 % (39.0-53.0); HEMOGLOBIN 14.3 g/dL (13.0-17.5); LYMPH # 0.6 x10^3/uL (1.0-4.8); LYMPH % 6 % (24-48); MEAN CORPUSCULAR HEMOGLOBIN 32 pg (25-35); MEAN CORPUSCULAR HGB CONC 34 g/dL (31-37); MEAN CORPUSCULAR VOLUME 93 fL (79-100); MONO # 0.6 x10^3/uL (0.0-1.1); MONO % 6 % (0-9); NEUT # 8.6 x10^3uL (1.8-7.7); NEUT % 88 % (31-73); PLATELET COUNT 71 x10^3/uL (140-400); RED BLOOD COUNT 4.47 x10^6/uL (4.30-5.70); RED CELL DISTRIBUTION WIDTH 13.4 % (11.5-14.5); WHITE BLOOD COUNT 9.8 x10^3/uL (4.0-11.0)
[2020-11-25 09:29] LABS: CALCIUM 7.9 mg/dL (8.5-10.1); CREATININE 0.7 mg/dL (0.7-1.3); GFR 123.1; POTASSIUM 3.2 mmol/L (3.5-5.1)
[2020-11-25] MEDS ORDERED: POTASSIUM BICARB 10 MEQ EFFERVESCENT TABLET. PEG ONE (09:45)
[2020-11-25] MEDS: OXYBUTYNIN CHLORIDE 5 MG TABLET PEG SCH ×4 (10:16→20:54)
[2020-11-25] MEDS: POLYETHYLENE GLYCOL 3350 17 GM PACKET. PO SCH ×2 (10:16→20:53)
[2020-11-25] MEDS: CETIRIZINE HCL 10 MG TABLET PEG SCH (10:16)
[2020-11-25] MEDS: SIMETHICONE 80 MG TAB.CHEW PEG SCH ×4 (10:19→20:54)
[2020-11-25] MEDS: ACETAMINOPHEN 650 MG/20.3 ML SOLUTION. PEG PRN (16:49)
[2020-11-25] MEDS: MELATONIN 3 MG TABLET PEG SCH (20:53)
[2020-11-26] VITALS (24 sets, daily range): BP systolic 91–159; BP diastolic 47–98
[2020-11-26] MEDS: PIPERACILLIN/TAZOBACTAM 4.5 GM in IV NORMAL SALINE 50ML 50 ML IV SCH ×4 (00:20→17:24)
[2020-11-26] MEDS: IV NORMAL SALINE 1,000ML 1,000 ML IV SCH ×2 (02:00→08:40)
--- NOTE | 2020-11-26 03:16 | PN ---
SUBJECTIVE: The patient is resting, slightly propped up in bed in no apparent distress. He is very calm and quiet today. He is not agitated, yelling, hollering. PHYSICAL EXAMINATION: GENERAL: When I examined him, he looked well and was clearly in no apparent respiratory distress. There is definitely no pallor, jaundice, cyanosis, no lymphadenopathy, no thyromegaly, no jugular venous distention. No limb edema. VITAL SIGNS: Heart rate was 89, blood pressure is 132/89, temperature was 98.9, respiratory rate was 14 and oxygen saturation was 96% on room air. HEAD, EYES, EARS, NOSE AND THROAT: Normocephalic, atraumatic. NECK: Supple. HEART: Showed normal first and second heart sounds, no gallop, murmur. CHEST: Clear to auscultation, no crepitation or rhonchi. ABDOMEN: Distended, soft with suprapubic catheter in place as well as a gastrostomy tube in place. He has actually a Hatch catheter as he accidentally dislodged his gastrostomy tube. NEUROLOGIC: He has severe anoxic encephalopathy and spastic quadriplegia with neurogenic bladder and bowel. His intake over the last 24 hours was 9925, output was 1425. LABORATORY DATA: As of this morning, his white cell count was 9800, hemoglobin 14, hematocrit 42, MCV 93, and platelet count of 71,000. His chemistry showed a serum sodium 143, potassium 3.2, chloride 109, bicarbonate 26, anion gap of 8, BUN 16, creatinine 0.7. Estimated GFR was 123 mL per minute. His glucose was 93, calcium was 7.9. ASSESSMENT: 1. Septic shock due to gram-negative bacteria identified as Klebsiella oxytoca. 2. Severe leukopenia, resolved. His today's white cell count was 9800. 3. Thrombocytopenia. His platelet count continued to be low, in fact, today's platelet count is down to 71,000. 4. Severe anoxic encephalopathy. The patient is in a vegetative state. 5. 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 6. Dysphagia. He has a percutaneous endoscopic gastrostomy tube; however, unfortunately, he has dislodged his PEG tube and a Hatch catheter was placed. 7. Neurogenic bladder for which he has a suprapubic catheter placed. PLAN: To continue with IV fluid. Continue with IV antibiotic. His blood culture has grown Klebsiella oxytoca ____, we are awaiting sensitivity to deescalate his antibiotic. JEANETTE/BHAKTI/MAJOR DR: JEANETTE/rajni TID: [id number]
[2020-11-26] MEDS: CETIRIZINE HCL 10 MG TABLET PEG SCH (09:00)
[2020-11-26] MEDS: SIMETHICONE 80 MG TAB.CHEW PEG SCH ×4 (09:00→22:07)
[2020-11-26] MEDS: POLYETHYLENE GLYCOL 3350 17 GM PACKET. PO SCH ×2 (09:00→21:00)
[2020-11-26] MEDS: OXYBUTYNIN CHLORIDE 5 MG TABLET PEG SCH ×4 (09:00→22:07)
[2020-11-26] MEDS: HYDROcodone/APAP 10/325 1 TAB TABLET FT PRN ×2 (09:09→22:07)
[2020-11-26 11:17] LABS: HEMATOCRIT 40.8 % (39.0-53.0); HEMOGLOBIN 13.9 g/dL (13.0-17.5); RED BLOOD COUNT 4.4 x10^6/uL (4.30-5.70); RED CELL DISTRIBUTION WIDTH 13.4 % (11.5-14.5); WHITE BLOOD COUNT 8.7 x10^3/uL (4.0-11.0)
[2020-11-26 11:25] LABS: CALCIUM 7.9 mg/dL (8.5-10.1); CREATININE 0.6 mg/dL (0.7-1.3); POTASSIUM 3.4 mmol/L (3.5-5.1)
[2020-11-26] MEDS ORDERED: IOHEXOL 300 MG/ML 75 ML VIAL. IV ONE (11:30)
[2020-11-26 11:32] LABS: ALBUMIN/GLOBULIN RATIO 0.6 (1.0-1.7); TOTAL BILIRUBIN 1.2 mg/dL (0.2-1.0); TOTAL PROTEIN 5.5 g/dL (6.4-8.2)
[2020-11-26] MEDS ORDERED: FUROSEMIDE 40 MG/4 ML VIAL ONE (12:38)
[2020-11-26] MEDS ORDERED: FUROSEMIDE 40 MG/4 ML VIAL IVP ONE (12:45)
[2020-11-26] MEDS: POTASSIUM CHLORIDE 20 MEQ TABLET.ER. PO SCH ×2 (12:53→22:08)
--- NOTE | 2020-11-26 13:01 | RAD ---
CT angiogram of the chest with contrast: Reason for examination: Acute hypoxia with respiratory failure. Helical images were obtained through the chest with intravenous administration of 98 cc Omnipaque 350 using PE protocol. 3-D MIPS reconstruction was performed in sagittal and coronal planes. Exposure: One or more of the following individualized dose reduction techniques were utilized for thi s examination: 1. Automated exposure control 2. Adjustment of the mA and/or kV according to patient size 3. Use of iterative reconstruction technique. No abnormality seen at the thyroid gland. The trachea and mainstem bronchi show no intraluminal lesio ns. No abnormality seen at the esophagus. The thoracic aorta shows no aneurysmal dilatation or dissec tion. The heart size is normal with no pericardial effusion. No pulmonary embolus is evident. Lung fi elds however show moderate bilateral pleural effusions layering posteriorly with patchy infiltrates b ilaterally which are predominantly lower lobe. No pneumothorax is seen. There are some emphysematous changes at the apices. No acute bony abnormalities are seen. The liver shows fatty infiltration. The spleen is enlarged at 15 cm without a focal lesion. No abnorm alities of seen at the adrenal glands. Gallbladder shows cholelithiasis. No abnormality seen at the v isualized portion of the pancreas or left kidney. IMPRESSION: No pulmonary embolus evident. Moderate bilateral pleural effusions with patchy infiltrates bilaterally which are predominantly lowe r lobe. Fatty liver. Enlarged spleen at 15 cm. Cholelithiasis. Electronically signed by: Margie Mariee MD (11/26/2020 12:59 PM) BENITA
--- NOTE | 2020-11-26 19:25 | RAD ---
Exam: Abdomen one view INDICATION: Tube feed aspiration TECHNIQUE: Supine view the abdomen Comparisons: None FINDINGS: There is a percutaneous gastrostomy tube with balloon projecting in the left upper quadrant likely wi thin the stomach. Air and stool are noted throughout the colon to level the rectum in a nonobstructive bowel gas patter n. No suspicious masses or calcifications. Visualized osseous structures are unremarkable. IMPRESSION: Lines and tubes described above. Nonobstructive bowel gas pattern. Electronically signed by: Kelli Moreira MD (11/26/2020 7:22 PM) DOLORES
--- NOTE | 2020-11-26 21:50 | PN ---
DATE: 11/26/2020 SUBJECTIVE: The patient was admitted with severe septic shock, for which he was treated with IV antibiotic and IV fluid and his blood culture has eventually grown more than 100,000 colony forming units per mL of Klebsiella oxytoca Raoultella that is sensitive to piperacillin, tazobactam. I did discontinue the Zyvox and the patient was throughout the last 3 days on room air, maintaining his oxygen saturation of 95-96%. Unfortunately, this morning, the patient became acutely hypoxic and despite being on 40% by Ventimask his oxygenation has continued to be borderline. PHYSICAL EXAMINATION: GENERAL: When I examined him this morning, he looked well and was clearly in no apparent respiratory distress. There was no pallor, jaundice, cyanosis, or thyromegaly. No jugular distention. No limb edema. VITAL SIGNS: Heart rate was 89, blood pressure is 159/85, temperature was 99.2, respiratory rate was 21 and oxygen saturation was 93% on 4 liters of oxygen by Ventimask. HEAD, EYES, EARS, NOSE AND THROAT: Normocephalic, atraumatic. He has a traumatic brain injury. NECK: Supple. HEART: Normal first and second heart sounds, no gallop, murmur. CHEST: Showed central trachea, equal bilateral chest expansion, air entry, vesicular breath sounds. No crepitation or rhonchi. ABDOMEN: Distended, soft with gastrostomy tube in place as well as a suprapubic catheter in place. No guarding or rigidity. No organomegaly. All hernial orifice intact. Bowel sounds normal. NEUROLOGIC: He has severe anoxic encephalopathy with spastic quadriplegia. His intake over the last 24 hours was 6365, output was 875. LABORATORY DATA: Today's labs are still pending at the time of this dictation, as of yesterday, his serum sodium was 143, potassium 3.2, chloride 109, bicarbonate 26, anion gap of 6.8, BUN 16, creatinine 0.7. Estimated GFR was 123 mL per minute. His white cell count is down to 9800, hemoglobin 14, hematocrit 42, MCV 93, and platelet count of 71,000. ASSESSMENT AND PLAN: 1. Septic shock due to Gram-negative bacteremia with a growth of Klebsiella oxytoca Raoultella sensitive to Zosyn. 2. Severe leukopenia, resolved. As of yesterday, his white cell count went up to 9800. 3. Thrombocytopenia with a platelet count trending down, as of yesterday it was 71,000. 4. Severe anoxic encephalopathy. The patient is in a vegetative state. 5. 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 6. Dysphagia. The patient has percutaneous endoscopic gastrotomy tube; however, unfortunately he managed to dislodged PEG tube, now has a Hatch catheter in place. 7. Neurogenic bladder for which he has a suprapubic catheter placed and is to continue with IV fluid. Continue with IV antibiotic. I did discontinue his Zyvox and given his acute hypoxic respiratory failure we are arranging for him to have a CT scan of the chest with PE protocol and decide on further management accordingly. JEANETTE DR: Esdras TID: [id number]
[2020-11-26] MEDS: MELATONIN 3 MG TABLET PEG SCH (22:07)
[2020-11-27] VITALS (18 sets, daily range): BP systolic 108–134; BP diastolic 64–97
[2020-11-27] MEDS: PIPERACILLIN/TAZOBACTAM 4.5 GM in IV NORMAL SALINE 50ML 50 ML IV SCH ×4 (03:52→17:31)
[2020-11-27 07:14] LABS: HEMATOCRIT 41.9 % (39.0-53.0); HEMOGLOBIN 14.4 g/dL (13.0-17.5); RED BLOOD COUNT 4.52 x10^6/uL (4.30-5.70); RED CELL DISTRIBUTION WIDTH 13.1 % (11.5-14.5); WHITE BLOOD COUNT 8.7 x10^3/uL (4.0-11.0)
[2020-11-27 07:26] LABS: ALBUMIN 2.2 g/dL (3.4-5.0); ALBUMIN/GLOBULIN RATIO 0.6 (1.0-1.7); CALCIUM 8.6 mg/dL (8.5-10.1); CREATININE 0.6 mg/dL (0.7-1.3); POTASSIUM 3.5 mmol/L (3.5-5.1); TOTAL BILIRUBIN 1.3 mg/dL (0.2-1.0)
[2020-11-27] MEDS ORDERED: LACTOBACILLUS RHAMNOSUS GG 1 CAPSULE. PO SCH (09:00)
--- NOTE | 2020-11-27 09:01 | RAD ---
CT chest without contrast: Reason for examination: Possible aspiration. Comparison is made to previous study dated 11/26/2020. Helical images were obtained through the chest with no contrast administered. Reconstruction was perf ormed in sagittal and coronal planes. Exposure: One or more of the following individualized dose reduction techniques were utilized for thi s examination: 1. Automated exposure control 2. Adjustment of the mA and/or kV according to patient size 3. Use of iterative reconstruction technique. No abnormality seen at the thyroid gland. The trachea and mainstem bronchi show no intraluminal lesio ns. No abnormality seen at the esophagus the thoracic aorta shows normal course and caliber. The hear t size is normal with no pericardial effusion. There continue to be moderate bilateral pleural effusi ons layering posteriorly. There are some bullous emphysematous changes at the apices bilaterally. The lung iniguez continue show bibasilar infiltrates. There is also a small focus of opacity in the right upper lobe which is new since previous exam. There also appears to be a small 5.7 mm nodular density in the lingula of the left lung. Considering the short interval for development of this nodule howev er this may represent some focal infiltrate but close follow-up is recommended. Old granulomatous dis ease is seen at the right hilum. No acute bony abnormalities are evident. No abnormalities of seen at the liver or spleen. There is cholelithiasis. No abnormalities are seen a t the adrenal glands. IMPRESSION: Continued presence of bibasilar infiltrates and moderate bilateral pleural effusions layering posteri courtney. New patchy infiltrates in the right upper lobe. Small 5.7 mm nodular density in the lingula of the left lung. Considering the interval development, t his may represent focal infiltrates but close follow-up is recommended. Small emphysematous bullous changes in the apices bilaterally. Cholelithiasis. Electronically signed by: Margie Mariee MD (11/27/2020 8:59 AM) [facility]
[2020-11-27] MEDS: FUROSEMIDE 40 MG/4 ML VIAL IVP SCH (09:09)
[2020-11-27] MEDS: SIMETHICONE 80 MG TAB.CHEW PEG SCH ×4 (09:09→21:12)
[2020-11-27] MEDS: POLYETHYLENE GLYCOL 3350 17 GM PACKET. PO SCH ×2 (09:09→21:12)
[2020-11-27] MEDS: POTASSIUM CHLORIDE 20 MEQ TABLET.ER. PO SCH ×3 (09:10→21:12)
[2020-11-27] MEDS: OXYBUTYNIN CHLORIDE 5 MG TABLET PEG SCH ×4 (09:10→21:12)
[2020-11-27] MEDS: CETIRIZINE HCL 10 MG TABLET PEG SCH (09:10)
[2020-11-27] MEDS: HYDROcodone/APAP 10/325 1 TAB TABLET FT PRN ×3 (09:11→21:13)
[2020-11-27] MEDS: ACETAMINOPHEN 650 MG/20.3 ML SOLUTION. PEG PRN (20:05)
[2020-11-27] MEDS: MELATONIN 3 MG TABLET PEG SCH (21:12)
--- NOTE | 2020-11-27 23:10 | PN ---
DATE: 11/27/2020 SUBJECTIVE: The patient is resting, slightly propped up in bed in no apparent distress. He is on room air, maintaining his oxygen saturation of 94%. OBJECTIVE: GENERAL: When I examined him, he looked well and was clearly in no apparent respiratory distress. No pallor, jaundice, cyanosis, or thyromegaly. No jugular venous distention, no lower limb edema. VITAL SIGNS: Heart rate was 90. Blood pressure is 121/86, temperature was 98.6, respiratory rate was 18 and oxygen saturation was 93% on room air. HEAD, EYES, EARS, NOSE AND THROAT: Normocephalic, atraumatic. NECK: Supple. HEART: Normal first and second heart sounds, no gallop, rub or murmur. CHEST: Clear to auscultation. No crepitation or rhonchi. ABDOMEN: Distended, soft with gastrostomy tube in place. There is no guarding or rigidity. No organomegaly. All hernial orifice intact. Bowel sounds normal. NEUROLOGIC: He has severe anoxic encephalopathy, traumatic brain injury. He has spastic quadriplegia and neurogenic bladder requiring indwelling Hatch catheter. His intake over the last 24 hours was 3600. Output was 2175. LABORATORY DATA: As of this morning, his white cell count is down to 8.7, hemoglobin 14.4, hematocrit 42, MCV 93, and platelet count of 93,000. His chemistry showed a serum sodium 144, potassium 3.5, chloride 106, bicarbonate 34, anion gap of 4, BUN 12, creatinine 0.6. Estimated GFR was 147 mL per minute, glucose 90, calcium was 8.6, total bilirubin 1.3. AST, ALT, alkaline phosphatase were normal. Total protein 6, albumin was 2.2. His urine culture showed growth of 3 or more organisms isolated that is consistent with colonization versus contamination. However, his blood culture has grown more than 100,000 colony forming units per mL of gram-negative rods identified as Klebsiella oxytoca Raoultella sensitive to piperacillin and the patient did have an episode of emesis yesterday and there was a possible questionable aspiration and therefore we did repeat a CT scan of the chest without contrast and this showed that the patient continued to have presence of bibasilar infiltrates and moderate bilateral pleural effusions layering posteriorly and new patchy infiltrate in the right upper lobe. A small 5.7 mm nodular density in the lingula of the left lung. Considering the interval development, this may represent local infiltrate, but a close followup is recommended. He has also had evidence of cholelithiasis, a small emphysematous bullous changes in the apices bilaterally. ASSESSMENT: 1. Septic shock due to Gram-negative bacteremia with growth of Klebsiella oxytoca Raoultella sensitive to Zosyn. 2. Severe leukopenia, has resolved. As of this morning, his white cell count is 8700. 3. Thrombocytopenia, [place] [address] to [address]. 4. Severe anoxic encephalopathy. The patient is in vegetative state. 5. 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 6. Dysphagia. The patient has percutaneous endoscopic gastrostomy tube. Unfortunately, he managed to dislodge his PEG tube and now he has a Hatch catheter in place. 7. Neurogenic bladder for which he has a suprapubic catheter placed and the plan is to continue with IV antibiotic. I did discontinue his Zyvox for his acute hypoxic respiratory failure. We did start him on IV Lasix and he has very good output. He is now actually on room oxygen if the patient remains stable, we will probably discharge him home tomorrow. DIDI DR: Esdras TID: [id number]
[2020-11-28] VITALS (9 sets, daily range): BP systolic 109–130; BP diastolic 73–84
[2020-11-28] MEDS: PIPERACILLIN/TAZOBACTAM 4.5 GM in IV NORMAL SALINE 50ML 50 ML IV SCH ×4 (00:02→18:00)
[2020-11-28 07:08] LABS: HEMATOCRIT 41.6 % (39.0-53.0); HEMOGLOBIN 14.1 g/dL (13.0-17.5); RED BLOOD COUNT 4.5 x10^6/uL (4.30-5.70); RED CELL DISTRIBUTION WIDTH 13.5 % (11.5-14.5)
[2020-11-28 07:14] LABS: ALBUMIN 2.4 g/dL (3.4-5.0); ALBUMIN/GLOBULIN RATIO 0.7 (1.0-1.7); CALCIUM 8.5 mg/dL (8.5-10.1); CREATININE 0.7 mg/dL (0.7-1.3); GFR 123.1; POTASSIUM 3.9 mmol/L (3.5-5.1); TOTAL PROTEIN 5.9 g/dL (6.4-8.2)
[2020-11-28] MEDS: POTASSIUM CHLORIDE 20 MEQ TABLET.ER. PO SCH ×2 (10:29→15:04)
[2020-11-28] MEDS: POLYETHYLENE GLYCOL 3350 17 GM PACKET. PO SCH ×2 (10:29→21:00)
[2020-11-28] MEDS: OXYBUTYNIN CHLORIDE 5 MG TABLET PEG SCH ×4 (10:29→21:56)
[2020-11-28] MEDS: CETIRIZINE HCL 10 MG TABLET PEG SCH (10:29)
[2020-11-28] MEDS: SIMETHICONE 80 MG TAB.CHEW PEG SCH ×3 (10:29→18:00)
[2020-11-28] MEDS: FUROSEMIDE 40 MG/4 ML VIAL IVP SCH (10:30)
[2020-11-28] MEDS: HYDROcodone/APAP 10/325 1 TAB TABLET FT PRN (17:26)
[2020-11-28] MEDS ORDERED: HYDROcodon/APAP 7.5/325MG ORAL 15 ML SOLUTION PEG PRN (20:00)
--- NOTE | 2020-11-28 20:15 | RAD ---
EXAM: Abdomen, single view. HISTORY: PEG tube replacement. COMPARISON: 11/26/2020 FINDINGS: Frontal views of the abdomen are obtained. There is a peg tube overlying the left upper ludy drant. There is increased density overlying the left upper quadrant which may be due to contrast. The re are prominent air-filled bowel throughout the abdomen. There is chronic deformity and dislocation of the left hip. There is a generator overlying the right flank. IMPRESSION: 1. Gastrostomy tube overlying the left upper quadrant. There is slight increased density surrounding the gastrostomy tube which may be due to contrast. This is insufficient to assess for extravasation. 2. Prominent air-filled loops of bowel throughout the abdomen, similar compared to the prior exam. Electronically signed by: Tory Loya MD (11/28/2020 8:12 PM) [facility]
[2020-11-28] MEDS ORDERED: IOHEXOL 240 MG/ML 50ML VIAL. ONE (21:24)
--- NOTE | 2020-11-28 21:47 | RAD ---
XR ABDOMEN 1V Clinical Indication: Reason: PEG TUBE PLACEMENT WITH OMNI 240 40 ML Comparison: KUB, earlier same day. Findings: Technologist injected oral contrast into PEG tube. The contrast outlines the stomach. No extravasatio n of contrast is identified. Scattered air in bowel. Generator projecting over the right iliac bone i s redemonstrated. IMPRESSION: PEG tube in appropriate position. Electronically signed by: Darryl Menchaca MD (11/28/2020 9:45 PM) [facility]
[2020-11-28] MEDS: SIMETHICONE ORAL DROPS 40 MG/0.6 ML 30ml BOTTLE. PEG SCH (21:56)
[2020-11-28] MEDS: MELATONIN 3 MG TABLET PEG SCH (21:56)
[2020-11-28] MEDS: POTASSIUM BICARB 20 MEQ EFFERVESCENT TABLET. PEG SCH (21:56)
[2020-11-29] VITALS: BP 104/67
[2020-11-29] MEDS: PIPERACILLIN/TAZOBACTAM 4.5 GM in IV NORMAL SALINE 50ML 50 ML IV SCH ×3 (00:40→12:00)
[2020-11-29 04:00] VITALS: BP 127/76
[2020-11-29 06:46] LABS: CALCIUM 8.9 mg/dL (8.5-10.1); CREATININE 0.8 mg/dL (0.7-1.3); GFR 105.5; POTASSIUM 3.9 mmol/L (3.5-5.1)
--- NOTE | 2020-11-29 07:32 | PN ---
SUBJECTIVE: The patient is resting, slightly propped up in bed in no apparent distress. He seemed to be comfortable, is not moaning or groaning. Nursing staff did not voice any concerns. PHYSICAL EXAMINATION: GENERAL: When I examined him, he looked pale. There is no pallor, jaundice, cyanosis, thyromegaly, jugular distention or limb edema. VITAL SIGNS: Heart rate was 99, blood pressure 114/75, temperature was 98.7, respiratory rate 20, and oxygen saturation was 93% on room air. HEAD, EYES, EARS, NOSE AND THROAT: Normocephalic, atraumatic. NECK: Supple. HEART: Showed normal first and second heart sounds, no gallop, rub or murmur. CHEST: Clear to auscultation, no crepitation or rhonchi. ABDOMEN: Distended, soft, nontender, no guarding or rigidity. No organomegaly. All hernial orifice intact. Bowel sounds normal. He has a gastrostomy tube in place as well as suprapubic catheter in place. NEUROLOGIC: He has severe traumatic injury and anoxic encephalopathy and spastic quadriplegia with fixed flexion contraction of all four limbs. His intake over the last 24 hour 880, output was 6875. LABORATORY DATA: This morning showed a serum sodium 147, potassium 3.9, chloride 104, bicarbonate 36, anion gap of 7, BUN 16, creatinine 0.7. Estimated GFR was 123 mL per minute. His glucose was 87, calcium was 8.5, total bilirubin, AST, ALT, alkaline phosphatase were normal. Total protein 5.9, albumin was 2.4. ASSESSMENT: 1. Septic shock due to Gram-negative bacteremia with growth of Klebsiella oxytoca and Raoultella, sensitive to Zosyn. 2. Severe leukopenia, resolved. As of today, his white cell count was 6000. 3. Thrombocytopenia, slightly improved. His platelet count is up to 110,000. 4. The patient has spastic quadriplegia with fixed flexion contraction of all limbs. 5. Dysphagia for which he has percutaneous endoscopic gastrostomy tube. Unfortunately, he managed to dislodge his PEG tube ____ balloon was ruptured and probably was ____ dislodged. We will replace it tomorrow. 6. Neurogenic bladder requiring suprapubic catheter. PLAN: To discontinue the IV Lasix. We will replace his gastrostomy tube tomorrow and switch him to oral Augmentin and discharge him back home tomorrow. JEANETTE/TUNG/MATTHIAS DR: Esdras TID: [id number]
[2020-11-29] MEDS: POLYETHYLENE GLYCOL 3350 17 GM PACKET. PO SCH (07:39)
[2020-11-29] MEDS: POTASSIUM BICARB 20 MEQ EFFERVESCENT TABLET. PEG SCH ×2 (08:02→12:46)
[2020-11-29] MEDS: CETIRIZINE HCL 10 MG TABLET PEG SCH (08:02)
[2020-11-29] MEDS: OXYBUTYNIN CHLORIDE 5 MG TABLET PEG SCH ×2 (08:02→12:46)
[2020-11-29] MEDS: SIMETHICONE ORAL DROPS 40 MG/0.6 ML 30ml BOTTLE. PEG SCH ×2 (08:02→12:46)
[2020-11-29 11:10] VITALS: BP 117/75
[2020-11-29] MEDS ORDERED: AMOX1TAB61 PO ×2 (14:19→14:27)
--- NOTE | 2020-11-29 14:21 | RAD ---
AP view of the abdomen Clinical indications: PEG tube placement. FINDINGS/ IMPRESSION: There is a PEG tube present within the left upper quadrant of the abdomen. There is mild dilatation of the colon. Electronically signed by: Steve Zamora MD (11/29/2020 2:19 PM) [id number]
--- NOTE | 2020-11-29 14:21 | DISCH ---
HOME HEALTH DISCHARGE/MEDS DISCHARGE INFORMATION: Discharge Date: November 29, 2020 Final Diagnosis: Problems Medical Problems: (1) Complicated UTI (urinary tract infection) Status: Acute (2) Hx of traumatic brain injury Status: Acute (3) Hypomagnesemia Status: Acute (4) Septic shock Status: Acute (5) Suspected 2019 novel coronavirus infection Status: Acute Condition on Discharge: Stable CODE STATUS: Code Status: Full HOME HEALTH: Face to Face: I certify this patient is under my care and that I, or a nurse practitioner or physician's academic affairs assistant working with me, had a face to face encounter that meets the physician face to face encounter requirements with this patient on 11/29/2020 Medical Condition(s): Other Retirement For: Medication Management POST DISCHARGE ORDERS: Activity Instructions for Disc: Activity as tolerated DIET AFTER DISCHARGE: CERTIFICATION STATEMENT: Certification Statement: Based on the above finding, I certify that this patient is confined to the home and needs intermittent mcc care, physical therapy and/or speech therapy, or continues to need occupational therapy.~ This patient is under my care, and I have initiated the establishment of the plan of care.~ This patient will be followed by myself or a community physician who will periodically review the plan of care. DISCHARGE MEDICATIONS: Home Meds Active Scripts Amoxicillin/Potassium Clav (AUGMENTIN 875-125 TABLET) 1 Each Tablet, 1 TAB PO BID for uti for 10 Days, #20 TAB 0 Refills Prov:LLOYD DUBOIS MD 11/29/20 Reported Medications Wheat Dextrin (BENEFIBER) 1 Each Powd.pack, 1 EACH PO QID for fiber Give with meals/tube feeding 11/24/20 Lactase (Lactaid) 3,000 Unit Tablet, 3000 UNIT PO QID for digestion Give with meals/Tube feedings 11/24/20 Sennosides (SENNA LAXATIVE) 8.6 Mg Tablet, 1 TAB PO DAILY for constipation for 30 Days, #30 TAB 0 Refills 11/24/20 Simethicone (GAS-X) 125 Mg Tab.chew, 125 MG PO QIDAFTMEAL for GAS, TAB.CHEW 11/23/20 Polyethylene Glycol 3350 (MIRALAX) 17 Gm Powd.pack, 1 PACKET PO BID for PREVENT CONSTIPATION LAST DOSE GIVEN: DATE: TODAY TIME: AM NEXT DOSE DUE: DATE: TODAY TIME: PM 10/09/18 Melatonin (MELATONIN) 3 Mg Tablet, 10 MG PO HS for SLEEP AIDE NOT GIVEN IN THE HOSPITAL NEXT DOSE DUE: DATE: RESTART TODAY TIME: AT BEDTIME 06/13/18 [baclofen pump] No Conflict Check, for MUSCLE CONTRACTURES 02/09/18 [osmolyte ] No Conflict Check, GT [id number] for PEG TUBE FEEDINGS LAST DOSE GIVEN: DATE: TODAY TIME: 1 PM NEXT DOSE DUE: DATE: TODAY TIME: 5 PM 02/09/18 Oxybutynin Chloride (OXYBUTYNIN CHLORIDE) 5 Mg Tablet, 5 MG PO QID for URINARY SYMPTOMS LAST DOSE GIVEN: DATE: TODAY TIME: AFTERNOON NEXT DOSE DUE: DATE: TODAY TIME: PM 01/31/15 Fexofenadine Hcl (THANH ALLERGY) 60 Mg Tablet, 30 MG PO BID for ALLERGIES LAST DOSE GIVEN: DATE: TODAY TIME: AM NEXT DOSE DUE: DATE: TODAY TIME: PM 08/27/13 Discontinued Reported Medications [vit D] No Conflict Check, for SUPPLEMENT NOT GIVEN IN THE HOSPITAL NEXT DOSE DUE: DATE: RESTART TOMORROW TIME: AM 02/09/18 LLOYD DUBOIS MD November 29, 2020 14:21
--- NOTE | 2020-11-29 14:50 | DISCH ---
HOME HEALTH DISCHARGE/MEDS DISCHARGE INFORMATION: Discharge Date: November 29, 2020 Final Diagnosis: Problems Medical Problems: (1) Complicated UTI (urinary tract infection) Status: Acute (2) Hx of traumatic brain injury Status: Acute (3) Hypomagnesemia Status: Acute (4) Septic shock Status: Acute (5) Suspected 2019 novel coronavirus infection Status: Acute Condition on Discharge: Stable CODE STATUS: Code Status: Full HOME HEALTH: Face to Face: I certify this patient is under my care and that I, or a nurse practitioner or physician's optometrist assistant working with me, had a face to face encounter that meets the physician face to face encounter requirements with this patient on [Date]. Chcf For: Admin/Educate Injections CERTIFICATION STATEMENT: Certification Statement: Based on the above finding, I certify that this patient is confined to the home and needs intermittent half-way care, physical therapy and/or speech therapy, or continues to need occupational therapy.~ This patient is under my care, and I have initiated the establishment of the plan of care.~ This patient will be followed by myself or a community physician who will periodically review the plan of care. DISCHARGE MEDICATIONS: Home Meds Active Scripts Amoxicillin/Potassium Clav (AUGMENTIN 875-125 TABLET) 1 Each Tablet, 1 TAB PO BID for uti for 5 Days, #10 TAB 0 Refills Prov:LLOYD DUBOIS MD 11/29/20 Reported Medications Wheat Dextrin (BENEFIBER) 1 Each Powd.pack, 1 EACH PO QID for fiber Give with meals/tube feeding 11/24/20 Lactase (Lactaid) 3,000 Unit Tablet, 3000 UNIT PO QID for digestion Give with meals/Tube feedings 11/24/20 Sennosides (SENNA LAXATIVE) 8.6 Mg Tablet, 1 TAB PO DAILY for constipation for 30 Days, #30 TAB 0 Refills 11/24/20 Simethicone (GAS-X) 125 Mg Tab.chew, 125 MG PO QIDAFTMEAL for GAS, TAB.CHEW 11/23/20 Polyethylene Glycol 3350 (MIRALAX) 17 Gm Powd.pack, 1 PACKET PO BID for PREVENT CONSTIPATION LAST DOSE GIVEN: DATE: TODAY TIME: AM NEXT DOSE DUE: DATE: TODAY TIME: PM 10/09/18 Melatonin (MELATONIN) 3 Mg Tablet, 10 MG PO HS for SLEEP AIDE NOT GIVEN IN THE HOSPITAL NEXT DOSE DUE: DATE: RESTART TODAY TIME: AT BEDTIME 06/13/18 [baclofen pump] No Conflict Check, for MUSCLE CONTRACTURES 02/09/18 [osmolyte ] No Conflict Check, GT [id number] for PEG TUBE FEEDINGS LAST DOSE GIVEN: DATE: TODAY TIME: 1 PM NEXT DOSE DUE: DATE: TODAY TIME: 5 PM 02/09/18 Oxybutynin Chloride (OXYBUTYNIN CHLORIDE) 5 Mg Tablet, 5 MG PO QID for URINARY SYMPTOMS LAST DOSE GIVEN: DATE: TODAY TIME: AFTERNOON NEXT DOSE DUE: DATE: TODAY TIME: PM 01/31/15 Fexofenadine Hcl (THANH ALLERGY) 60 Mg Tablet, 30 MG PO BID for ALLERGIES LAST DOSE GIVEN: DATE: TODAY TIME: AM NEXT DOSE DUE: DATE: TODAY TIME: PM 08/27/13 Discontinued Reported Medications [vit D] No Conflict Check, for SUPPLEMENT NOT GIVEN IN THE HOSPITAL NEXT DOSE DUE: DATE: RESTART TOMORROW TIME: AM 02/09/18 LLOYD DUBOIS MD November 29, 2020 14:50
--- NOTE | 2020-11-29 21:41 | DS ---
DATE OF DISCHARGE: 11/29/2020 HOSPITAL COURSE: The patient is a 45-year-old male patient with traumatic brain injury, severe anoxic encephalopathy as well as spastic paraplegia who was admitted to the emergency room of [facility] on 11/23/2020 with a fever up to 101.8, heart rate was 116. He has leukopenia with a white cell count of 1700 and thrombocytopenia. His urinalysis was consistent with UTI and the patient had had a central line. X-ray was unremarkable. The patient was started on IV fluid, Zosyn and Zyvox as well as levofloxacin and he did actually very well. His white cell count has risen from 17,000, 16,000 and today is 6000. His urine culture has grown multiple organisms, indicating colonization or contamination. However, his blood culture has grown more than 100,000 colony forming units per mL of gram-negative rods identified as Klebsiella oxytoca ____ sensitive to Augmentin and piperacillin. I discontinued Zyvox and unfortunately patient has an episode of aspiration pneumonia, so we continued with Zosyn. His gastrostomy tube was dislodged accidentally, the balloon has ruptured and we did put a Hatch catheter initially and today we replaced it with a new gastrostomy tube and we did confirm the placement of his gastrostomy tube and has remained hemodynamically stable and afebrile. A decision was made to discharge him home with home health. When I examined him this afternoon, he looked well and was clearly in no apparent respiratory distress. No pallor, jaundice, cyanosis, or thyromegaly. No jugular distention. No limb edema. His heart rate was 81, blood pressure is 117/75, temperature 97.6, respiratory rate was 21 and oxygen saturation was 93% on room air. The rest clinical exam is stable. His lab work this morning showed a white cell count of 6000, hemoglobin 14, hematocrit 42, MCV 93, and platelet count of 110,000. His chemistry showed a serum sodium 142, potassium 3.9, chloride 102, bicarbonate 34, anion gap of 6, BUN 14, creatinine 0.8. Estimated GFR was 105 mL per minute. His glucose 123 and calcium was 8.9. DISCHARGE MEDICATIONS: He was discharged home with home health to continue on amoxicillin/clavulanic acid 875/125 one tablet twice a day for 5 days. He will be discharged on amoxicillin/clavulanic acid 875/125 one tablet twice a day for 5 more days. He should continue on baclofen pump as before. Fexofenadine or Lidia 30 mg twice a day. Lactaid 3000 units 4 times a day, melatonin 10 mg at bedtime. He is on Osmolite 4 times a day, oxybutynin chloride 5 mg 4 times a day, polyethylene glycol 17 g daily, twice a day senna 8.6 one tablet daily, simethicone or Gas-X 125 mg 4 times a day, ____ Benefiber powder pack one 4 times a day. FINAL DISCHARGE DIAGNOSES: 1. Septic shock due to gram-negative bacteremia with growth of Klebsiella oxytoca ____ sensitive to Zosyn. 2. Severe leukopenia, resolved. As of yesterday, his white cell count was 6000. 3. Thrombocytopenia, improving. Today, platelet is 110,000. 4. 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 5. Dysphagia for which he has a percutaneous endoscopic gastrostomy tube placed successfully today. His original gastrostomy tube was dislodged accidentally and was replaced by Hatch catheter. 6. Neurogenic bladder requiring Hatch catheter. JOSE/TESSA DR: Esdras TID: [id number]
== END 2020-11-29 15:06 | disposition home health service (06) | DRG 871 ==
LOC: ER 08:08 → ICU 11:03 → 1 SOUTH 11-29 06:03
PROVIDERS: ADMIT Internal Medicine; ATTEND Internal Medicine
PROC: 02HV33Z Insertion of Infusion Device into Superior Vena Cava, Percutaneous Approach (ICD-10-PCS; principal; 2020-11-23)
PROC: B548ZZA Ultrasonography of Superior Vena Cava, Guidance (ICD-10-PCS; 2020-11-23)
PROC: 0T2BX0Z Change Drainage Device in Bladder, External Approach (ICD-10-PCS; 2020-11-23)
DX: A41.50 Gram-negative sepsis, unspecified (principal); G82.50 Quadriplegia, unspecified; R65.21 Severe sepsis with septic shock; J69.0 Pneumonitis due to inhalation of food and vomit; G93.1 Anoxic brain damage, not elsewhere classified; N39.0 Urinary tract infection, site not specified; Z20.822 Contact with and (suspected) exposure to COVID-19; D69.6 Thrombocytopenia, unspecified; E83.42 Hypomagnesemia; N31.9 Neuromuscular dysfunction of bladder, unspecified; R13.10 Dysphagia, unspecified; Z87.820 Personal history of traumatic brain injury; Z93.1 Gastrostomy status; Z88.2 Allergy status to sulfonamides; Z88.8 Allergy status to other drugs, medicaments and biological substances
CPT/HCPCS: 36415; 36556; 71045; 71250; 71275; 74018; 80048; 80053; 81001; 82553; 83605; 83735; 84484; 85007; 85025; 85027; 87040; 87077; 87086; 87186; 87205; 93005; 96365; 96366; 96367; 96368; 96375; J1940; J1956; J2020; J2060; J2543; J3010; J3475; Q9966; U0003; 99285-25; J7030